=== PATIENT | male | born 1975 | race African-American/Black ===

== ENCOUNTER 2016-09-12 11:01 | Inpatient (IN) | payer MEDICAID ==
[2016-09-12] MEDS ORDERED: PANTOPRAZOLE 40 MG VIAL IV ONE (11:30)
--- NOTE | 2016-09-12 11:32 | EDPRACDOC ---
- General Information Stated Complaint: UPPER GI PROBLEMS Time Seen by Provider: 09/12/16 11:10 Mode of Arrival: Ambulance Home Medications: Home Medications Fluoxetine HCl [Prozac] 40 mg PO DAILY 06/29/15 HydrALAZINE (Cardiovascular) [Apresoline] 50 mg PO QID 06/29/15 Metoprolol Tartrate [Lopressor] 50 tab TUBE BID 06/29/15 Amlodipine Besylate 10 mg PO DAILY 09/12/15 Sucralfate [Carafate] 1 gm PO QID 02/12/16 Docusate Sodium 100 mg PO BID 04/25/16 Quetiapine Fumarate [Seroquel] 200 mg PO QHS 06/02/16 Ferrous Sulfate [Feosol] 325 mg PO BID 06/13/16 Guaifenesin [Robitussin] 15 ml PO Q6H PRN 06/13/16 Omeprazole [Prilosec] 20 mg PO BID 06/13/16 Sennosides [Senna] 2 tab PO HS 06/13/16 CloNIDine (Antihypertensive) [Catapres] 0.2 tab PO BID 07/30/16 Acetaminophen [Tylenol] 650 mg PO Q6H PRN 09/12/16 Bethanechol Chloride [Urecholine] 25 mg PO DAILY 09/12/16 Ergocalciferol (Vitamin D2) [Vitamin D] 50,000 units PO QMONTH 09/12/16 Insulin Glargine [Lantus Pen] 8 units SQ QAM 09/12/16 Mag Hydrox/Al Hydrox/Simeth [Maalox Suspension] 30 ml PO Q3H PRN 09/12/16 Magnesium Oxide [Magnesium] 400 mg PO DAILY 09/12/16 Multivitamin [One Daily Essential] 1 tab PO DAILY 09/12/16 Ondansetron HCl [Zofran] 4 mg PO Q8H PRN 09/12/16 Oxycodone HCl [Roxicodone] 5 mg PO Q6H PRN 09/12/16 Polyethylene Glycol 3350 [Miralax] 17 gm PO BID 09/12/16 Potassium Chloride 10 meq PO DAILY 09/12/16 Tamsulosin HCl [Flomax] 0.4 mg PO QAM 09/12/16 Temazepam [Restoril] 15 mg PO QHS PRN 09/12/16 Allergies/Adverse Reactions: Allergies Allergy/AdvReac Type Severity Reaction Status Date / Time Latex, Natural Rubber Allergy Intermediate Rash-Locali Verified 08/15/16 10:29 zed atorvastatin calcium Allergy See Verified 08/15/16 10:29 [From Lipitor] Comments - History of Present Illness Onset: YEST HPI: [facility] FROM [facility]. COFFEE GROUND EMESIS SINCE LAST NIGHT. LIMITED HISTORY DUE TO APHASIA. PT FOLLOWS SOME COMMANDS. ED Past Medical History - Patient Medical History Neurological History: Reports: Cerebrovascular Accident Cardiac History: Reports: Hypertension Respiratory History: Denies: Pneumonia, Pulmonary Embolism (but has history of DVT per medical records) GI/ History: Reports: Renal Disease (CKD stage 3), Gastroesophageal Reflux ( and esophageal stricture. EGD 01/2016 Dr. Vicente, no ulcers.), Ulcer (in past. No ulcer on EGD 01/2016, Dr. Vicente) Musculoskeletal History: Reports: Arthritis Psychological History: Reports: Depression, Schizophrenia. Denies: Substance Use Disorder Systemic History: Reports: Diabetes (Type 2) - Family Medical History Reports: Hypertension (father), Diabetes (father), Cancer (mother (colon)), Stroke (father). Denies: Cardiac Disorders - Social Medical History Smoking Status: Former smoker Social History: Denies: Substance Use Disorder - Physical Exam Constitutional: No apparent distress Oriented to: Unable to Test Last recorded Vital Signs: Last Vital Signs Temp 98.6 F 09/12/16 11:10 Pulse 105 09/12/16 11:10 Resp 20 09/12/16 11:10 BP 197/111 H 09/12/16 11:10 Pulse Ox 100 09/12/16 11:10 Oxygen Pulse Oxygen Saturation 100 O2 Device Oxygen Flow Rate Fraction of Inspired Oxygen ( FIO2) - HEENT Head: Normal Eye Exam: Normal Oropharynx: Normal Nose: No Symptoms Reported Neck: Normal - Respiratory/Cardiovascular Respiratory: Normal - CTA Cardiovascular: Normal - GI Tenderness: Non tender - Musculoskeletal Back: Normal Extremities: Other (CONTRACTURES B/L LEGS, LEFT ARM.) - Integumentary Skin: Normal - Neurologic Memory Impaired: Unable to Test Motor Function: Unable to Test Cerebellar: Unable to Test - Results 09/12/16 12:10 09/12/16 12:10 - EKG EKG #1 EKG Time: 11:24 -: Yes EKG interpreted by me Rate: bpm: 102 [place]: Normal Rhythm: ST Block: None Hypertrophy: None ST: Normal Comments: NORMAL EKG - Departure Yes I personally saw and evaluated the patient. Disposition: Admit IP To This Hospital Condition: Stable Final Diagnosis: Nausea and vomiting, Dehydration, Libertad-Reddy tear, Upper GI bleed Decision to Admit Time: 14:14 Decision to admit date: 09/12/16 Decision to admit: from ED - Physician Consulted Hospitalist Time Called: 14:14 Provider Called: Ruth Allison [employer] Returned Call: 14:14
--- NOTE | 2016-09-12 11:58 | DIRPT ---
CLINICAL DATA: Coffee-ground emesis beginning yesterday. EXAM: PORTABLE CHEST - 1 VIEW COMPARISON: None. FINDINGS: The heart size is normal. Lung volumes are low. No focal airspace disease is present. IMPRESSION: 1. No acute cardiopulmonary disease. Electronically Signed By: Anthony Gonzales M.D. On: 09/12/2016 11:55
[2016-09-12 12:46] LABS: MPV 7.3 fL (7.4-10.4)
[2016-09-12 13:01] LABS: BLOOD UREA NITROGEN 25 MG/DL (9-20); CALC CORRECTED 9.8 MG/DL (8.4-10.2); CALCIUM 8.6 MG/DL (8.4-10.2); CALCULATED OSMOLALITY 284 MOs/Kg (270-290); CHLORIDE 109 mEq/L (98-107); GLUCOSE 218 MG/DL (70-99); SODIUM LEVEL 142 mEq/L (137-146); TOTAL PROTEIN 6.8 G/DL (6.3-8.2)
[2016-09-12 13:06] LABS: TOTAL CELL COUNT 100
[2016-09-12 13:07] LABS: SEG NEUTROPHIL 83 % (45-76)
[2016-09-12] MEDS ORDERED: NS 1,000 ML IV ONE (14:13)
[2016-09-12] MEDS ORDERED: LIDOCAINE 1% 30 ML VIAL (PRESERVATIVE FREE) ONE (14:31)
[2016-09-12 15:04] LABS: LEUKOCYTES/URINE 1+ (NEGATIVE); NITRITE/URINE NEG (NEGATIVE); URINE OCCULT BLOOD 3+ (NEG/TRACE)
[2016-09-12 15:10] LABS: AMORPHOUS 2+; RBC/URINE 30-40 (0-2); WBC/URINE 40-50 (0-2)
[2016-09-12] MEDS ORDERED: TEMAZEPAM 15 MG CAP PO PRN (15:29)
[2016-09-12] MEDS ORDERED: Aluminum;Magnesium;Simethicone 30 ML UDC PO PRN ×2 (15:29→15:32)
[2016-09-12] MEDS ORDERED: GUAIFENESIN 200 MG/10 ML UDC PO PRN (15:29)
[2016-09-12] MEDS ORDERED: Non-Formulary Medication ITEM (Ondansetron Hcl [Zofran] 4 MG) PO PRN (15:29)
[2016-09-12] MEDS ORDERED: ACETAMINOPHEN 650 MG SUPP PR PRN (15:32)
[2016-09-12] MEDS ORDERED: SODIUM CHLORIDE 0.9% 3 ML FLUSH FLUSH PRN (15:32)
[2016-09-12] MEDS ORDERED: ACETAMINOPHEN 325 MG/TAB TABLET PO PRN (15:32)
[2016-09-12] MEDS ORDERED: MAGNESIUM HYDROXIDE 30 ML BOTTLE PO PRN (15:32)
[2016-09-12] MEDS ORDERED: ONDANSETRON HCL 4 MG/2 ML VIAL IV PRN (15:32)
[2016-09-12] MEDS ORDERED: PROMETHAZINE 25 MG/ML VIAL IV PRN (15:32)
--- NOTE | 2016-09-12 15:42 | HISTPHYS ---
- Chief Complaint C/O COFFEE GROUND EMESIS SINCE LAST NIGHT. PT FROM [facility] - History of Present Illness [facility] COFFEE GROUND EMESIS SINCE LAST NIGHT. LIMITED HISTORY DUE TO APHASIA. PT FOLLOWS SOME COMMANDS. From review of records at [facility] it appears that patient eats a calorie controlled no added salt heart diet. Apparently developed some coffee-ground emesis last night. In the emergency department NG tube was placed and he had some yellow emesis but it was gastroccult positive. The patient is aphasic after a stroke and he has severe hypertension. His white blood cell count is also elevated but there is no sign of any infection. Given his elevated white count, markedly out of control blood pressure, likely viral gastroenteritis and difficult to discern history patient will be admitted into the hospital for further evaluation and management of malignant hypertension, leukocytosis, and nausea vomiting. - Medical History Cardiac History: Reports: Hypertension Respiratory History: Denies: Pneumonia, Pulmonary Embolism (but has history of DVT per medical records) GI/ History: Reports: Renal Disease (CKD stage 3), Gastroesophageal Reflux ( and esophageal stricture. EGD 01/2016 Dr. Vicente, no ulcers.), Ulcer (in past. No ulcer on EGD 01/2016, Dr. Vicente) Musculoskeletal History: Reports: Arthritis Systemic History: Reports: Diabetes (Type 2) Neurological History: Reports: Cerebrovascular Accident Psychological History: Reports: Depression, Schizophrenia. Denies: Substance Use Disorder - Medictions/Allergies Allergies Latex, Natural Rubber Allergy (Intermediate, Verified 08/15/16 10:29) Rash-Localized atorvastatin calcium [From Lipitor] Allergy (Verified 08/15/16 10:29) See Comments "LEG PAIN" Current Medication List: Reviewed Home Medications Fluoxetine HCl [Prozac] 40 mg PO DAILY 06/29/15 HydrALAZINE (Cardiovascular) [Apresoline] 50 mg PO QID 06/29/15 Metoprolol Tartrate [Lopressor] 50 tab TUBE BID 06/29/15 Amlodipine Besylate 10 mg PO DAILY 09/12/15 Sucralfate [Carafate] 1 gm PO QID 02/12/16 Docusate Sodium 100 mg PO BID 04/25/16 Quetiapine Fumarate [Seroquel] 200 mg PO QHS 06/02/16 Ferrous Sulfate [Feosol] 325 mg PO BID 06/13/16 Guaifenesin [Robitussin] 15 ml PO Q6H PRN 06/13/16 Omeprazole [Prilosec] 20 mg PO BID 06/13/16 Sennosides [Senna] 2 tab PO HS 06/13/16 CloNIDine (Antihypertensive) [Catapres] 0.2 tab PO BID 07/30/16 Acetaminophen [Tylenol] 650 mg PO Q6H PRN 09/12/16 Bethanechol Chloride [Urecholine] 25 mg PO DAILY 09/12/16 Ergocalciferol (Vitamin D2) [Vitamin D] 50,000 units PO QMONTH 09/12/16 Insulin Glargine [Lantus Pen] 8 units SQ QAM 09/12/16 Mag Hydrox/Al Hydrox/Simeth [Maalox Suspension] 30 ml PO Q3H PRN 09/12/16 Magnesium Oxide [Magnesium] 400 mg PO DAILY 09/12/16 Multivitamin [One Daily Essential] 1 tab PO DAILY 09/12/16 Ondansetron HCl [Zofran] 4 mg PO Q8H PRN 09/12/16 Oxycodone HCl [Roxicodone] 5 mg PO Q6H PRN 09/12/16 Polyethylene Glycol 3350 [Miralax] 17 gm PO BID 09/12/16 Potassium Chloride 10 meq PO DAILY 09/12/16 Tamsulosin HCl [Flomax] 0.4 mg PO QAM 09/12/16 Temazepam [Restoril] 15 mg PO QHS PRN 09/12/16 - Family History Reports: Hypertension (father), Diabetes (father), Cancer (mother (colon)), Stroke (father). Denies: Cardiac Disorders - Social History Travel Outside of [place] in the Last 3 Months?: No Lives: in [facility] Care[facility] Smoking Status: Former smoker Social History: Denies: Alcohol Use, Substance Use Disorder - Review of Systems Yes Review of systems cannot be obtained due to the patient's medical condition - Physical Exam Vital Signs: Initial Vitals Temperature 98.6 F 09/12/16 11:10 Pulse Rate 105 09/12/16 11:10 Respiratory Rate 20 09/12/16 11:10 Blood Pressure 197/111 H 09/12/16 11:10 Pulse Oxygen Saturation 100 09/12/16 11:10 Constitutional: No apparent distress, Alert (Awake, Fully oriented. Normal and appropriate affect.Well appearing. Well nourished.), Well nourished, Well appearing, Other (Cooperative) Oriented to: Unable to Test - HEENT Head: Normal (normocephalic, atraumatic.), Other (No cervical lymphadenopathy. No supraclavicular lymphadenopathy. Neck: No palpable mass, supple , trachea midline.) Eye: Normal Oropharynx: Normal (Pharynx: Moist without exudate,Gums-no swelling, No oropharyngeal lesions or erythema, Mucous membranes are dry.) Nose: No Symptoms Reported (septum midline, Nares patent, without discharge or bleeding.) Respiratory: Normal - CTA (Clear to auscultation bilaterally. No wheezing, rales , rhonchi. Chest wall movements are symmetric. No use of accessory muscles to breathe.) Cardiovascular: Tachycardia - GI Auscultation: Normal (normal active sounds) Palpation: Normal (Soft,non distended,nontender. No hepatosplenomegaly.), Other (PEG tube in place) Tenderness: Non tender (No rebound or guarding) Cleveland's Sign: Negative - Garg catheter in place - Musculoskeletal Back: Normal (Non-Tender) Extremities: Normal (Normal tone, DP pulses 2+ bilaterally, No cyanosis or edema bilaterally, FROM bilaterally.) - Integumentary Skin: Normal (Clean, dry, and intact. No rashes. No lesions.) Lymphatics: Normal (No cervical lymphadenopathy. No supraclavicular lymphadenopathy.) - Neurologic Memory Impaired: Unable to Test Motor Function: Unable to Test Cranial Nerve: Unable to Test - Focused CV Perfusion Exam Vital Signs: Last Vital Signs Temp 98.6 F 09/12/16 11:10 Pulse 109 09/12/16 14:34 Resp 18 09/12/16 14:34 BP 193/115 H 09/12/16 14:34 Pulse Ox 98 09/12/16 14:34 - Lab Results Laboratory Results - last 24 hr 09/12/16 09/12/16 09/12/16 12:10 12:10 14:36 WBC 23.7 H RBC 4.26 L Hgb 11.4 L Hct 34.5 L MCV 81 MCH 26.8 L MCHC 33.1 RDW 15.7 H Plt Count 335 MPV 7.3 L Neut % (Auto) Cancelled Lymph % (Auto) Cancelled Placer % (Auto) Cancelled Eos % (Auto) Cancelled Baso % (Auto) Cancelled Absolute Neuts (auto) Cancelled Absolute Lymphs (auto) Cancelled Seg Neuts % (Manual) 83 H Band Neutrophils % 5 Lymphocytes % (Manual) 9 L Monocytes % (Manual) 3 Absolute Neutrophils 20.86 H Absolute Lymphocytes 2.13 Vacuolated Neuts 1+ Platelet Estimate Norm RBC Morphology 1+ polychrom Sodium 142 Potassium 4.6 Chloride 109 H Carbon Dioxide 21 L Anion Gap 17 H BUN 25 H Creatinine 3.00 H Estimated GFR (MDRD) 28 L Glucose 218 H Calculated Osmolality 284 Calcium 8.6 Corrected Calcium 9.8 Total Bilirubin 0.4 AST 31 ALT 32 Alkaline Phosphatase 147 H Troponin I 0.02 Total Protein 6.8 Albumin 2.8 L Urine Color Yellow Urine Clarity Cldy Urine pH 6.0 Ur Specific Harrell 1.025 Urine Protein 2+ H Urine Glucose (UA) 3+ Urine Ketones 1+ H Urine Occult Blood 3+ H Urine Nitrite Neg Urine Bilirubin Neg Urine Urobilinogen 0.2 Ur Leukocyte Esterase 1+ H Urine RBC 30-40 H Urine WBC 40-50 H Ur Epithelial Cells 1+ Amorphous Sediment 2+ Urine Bacteria 3+ H - Diagnostic Findings PORTABLE CHEST - 1 VIEW COMPARISON: None. FINDINGS: The heart size is normal. Lung volumes are low. No focal airspace disease is present. IMPRESSION: 1. No acute cardiopulmonary disease. Electronically Signed By: Anthony Gonzales M.D. On: 09/12/2016 11:55 - Assessment (1) Viral gastroenteritis A08.4 - VIRAL INTESTINAL INFECTION, UNSPECIFIED Suspected Present on Admission: Yes Patient with no obvious signs or symptoms of acute infection. Will admit him into the hospital and panculture urine and blood. White blood cell count is concerning but it appears that this may be a viral gastroenteritis causing nausea and vomiting. 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 Likely this may be the cause of the bleeding noted at the facility. Monitor H&H. Dr. Arma to see patient if necessary. (4) Nausea and vomiting R11.2 - NAUSEA WITH VOMITING, UNSPECIFIED Acute Present on Admission: Yes Likely due to viral gastroenteritis (5) Type 2 diabetes mellitus with diabetic polyneuropathy E11.42 - TYPE 2 DIABETES MELLITUS WITH DIABETIC POLYNEUROPATHY Acute Qualifiers: Diabetes mellitus termite control representative insulin use: unspecified care home insulin use status Qualified Code(s): E11.42 - Type 2 diabetes mellitus with diabetic polyneuropathy Fingerstick blood glucoses a.c. and HS with sliding scale insulin coverage. Continue home medications. Check hemoglobin A1c and urinary microalbumin. - Plan Admit. Monitor closely. Hydrate. Case Care Discussed with: Consultants, Nursing Staff Total Time: 70 minutes Critical Care: No Couseling Time (>50% in counseling/coordination): No
[2016-09-12] MEDS ORDERED: ONDANSETRON HCL 4 MG ODT TAB PO PRN (15:56)
[2016-09-12] MEDS ORDERED: GLARGINE INSULIN (LANTUS) 100 UNITS/ML PEN SQ SCH (16:00)
[2016-09-12] MEDS: AMLODIPINE 10 MG TAB PO SCH (16:08)
--- NOTE | 2016-09-12 16:22 | DIRPT ---
CLINICAL DATA: 40-year-old male currently in the emergency department with a urinary tract infection and inability to gain IV access. He will require outpatient antibiotic therapy. EXAM: CENTRAL VENOUS CATHETER FLUOROSCOPY TIME: 6 seconds TECHNIQUE: The right arm was prepped with chlorhexidine, draped in the usual sterile fashion using maximum barrier technique (cap and mask, sterile gown, sterile gloves, large sterile sheet, hand hygiene and cutaneous antiseptic). Local anesthesia was attained by infiltration with 1% lidocaine. Ultrasound demonstrated patency of the right brachial vein, and this was documented with an image. Under real-time ultrasound guidance, this vein was accessed with a 21 gauge micropuncture needle and image documentation was performed. The needle was exchanged over a guidewire for a peel-away sheath through which a 33 cm 5 Urdu single lumen power injectable PICC was advanced, and positioned with its tip at the lower SVC/right atrial junction. Fluoroscopy during the procedure and fluoro spot radiograph confirms appropriate catheter position. The catheter was flushed, secured to the skin with Prolene sutures, and covered with a sterile dressing. COMPLICATIONS: None. The patient tolerated the procedure well. IMPRESSION: Successful placement of a right arm single-lumen power PICC PICC with sonographic and fluoroscopic guidance. The catheter is ready for use. Signed, Dane Hernandez MD [facility] Electronically Signed By: Dane Hernandez M.D. On: 09/12/2016 16:19
[2016-09-12] MEDS ORDERED: Vaccine Screening Complete SCH (17:00)
[2016-09-12] MEDS: SODIUM CHLORIDE 0.9% 3 ML FLUSH FLUSH SCH (17:08)
[2016-09-12] MEDS: NS 1,000 ML IV SCH (18:11)
[2016-09-12] MEDS: PANTOPRAZOLE 40 MG TAB PO SCH (18:33)
[2016-09-12] MEDS: FERROUS SULFATE 324 MG TAB PO SCH (18:35)
[2016-09-12] MEDS: SUCRALFATE 1 GM TAB PO SCH ×2 (18:35→21:05)
[2016-09-12 19:14] LABS: PARTIAL THROMB. TIME 21.2 SEC (22-35); PT-INR 1.1
--- NOTE | 2016-09-12 19:46 | DIRPT ---
CLINICAL DATA: Clinical concern for CVA. EXAM: CT HEAD WITHOUT CONTRAST TECHNIQUE: Contiguous axial images were obtained from the base of the skull through the vertex without intravenous contrast. COMPARISON: None. FINDINGS: Brain: No evidence of acute infarction, hemorrhage, extra-axial collection, ventriculomegaly, or mass effect. Encephalomalacia in the right basal ganglia is likely due to prior lacunar infarct. Mild periventricular white matter microvascular disease is noted. Vascular: No hyperdense vessel. Vascular calcifications at the skullbase are seen. Skull: Negative for fracture or focal lesion. Sinuses/Orbits: Small fluid collection within the right maxillary sinus. The remainder of the visualized paranasal sinuses are normal. Other: None. IMPRESSION: No acute intracranial abnormality. Mild chronic microvascular disease. Remote right basal ganglia lacunar infarct. Electronically Signed By: James Cordero M.D. On: 09/12/2016 19:44
[2016-09-12] MEDS: hydrALAZINE 20 MG/ML VIAL IV PRN (19:59)
[2016-09-12] MEDS: ENOXAPARIN 40 MG/0.4 ML PFS SQ SCH (20:58)
[2016-09-12] MEDS ORDERED: Non-Formulary Medication ITEM (Omeprazole 20 MG) PO SCH (21:00)
[2016-09-12] MEDS ORDERED: QUETIAPINE FUMARATE 200 MG PO SCH (21:00)
[2016-09-12] MEDS ORDERED: Non-Formulary Medication ITEM (Ferrous Sulfate [Feosol] 325 MG) PO SCH (21:00)
[2016-09-12] MEDS: CloNIDine 0.2 MG TAB PO SCH (21:05)
[2016-09-12] MEDS: METOPROLOL TARTRATE 50 MG TAB PEG SCH (21:05)
[2016-09-12] MEDS: Docusate Sodium 100 MG CAP PO SCH (21:05)
[2016-09-12] MEDS: PEG-ELECTROLYTE 17 GM PACK PO SCH (21:05)
[2016-09-12] MEDS: SENNA CONCENTRATE TAB PO SCH (21:05)
[2016-09-12] MEDS: QUETIAPINE FUMARATE 100 MG TAB PO SCH (21:05)
[2016-09-13] MEDS: NS 1,000 ML IV SCH ×3 (01:53→14:32)
[2016-09-13] MEDS: hydrALAZINE 20 MG/ML VIAL IV PRN (01:55)
[2016-09-13] MEDS ORDERED: NS 50 ML IV ONE (02:17)
[2016-09-13] MEDS ORDERED: LORAZEPAM 2 MG/ML VIAL IV ONE ×4 (02:59→05:32)
[2016-09-13] MEDS ORDERED: LORAZEPAM 2 MG/ML VIAL ONE (03:22)
--- NOTE | 2016-09-13 03:59 | GENMEDPROG ---
Chief Complaint: CRITICAL CARE NOTE 09/13/16309 S: NURSE CALLED. PATIENT HAS HAD A CHANGE. HE IS NOT LOOKING AT NURSE AND EYES ROLLING IN BACK OF HEAD. PUPILS REMAIN MINIMALLY REACTIVE. Subjective Note: CRITICAL CARE NOTE 09/13/16309 S: NURSE CALLED. PATIENT HAS HAD A CHANGE. HE IS NOT LOOKING AT NURSE AND EYES ROLLING IN BACK OF HEAD. PUPILS REMAIN MINIMALLY REACTIVE. Has had some tremor of his legs and arms. ROS: Unable to obtain due to patient's medical condition. Notes Reviewed: Yes Events from last night noted and discussed with Clinical Staff Current Medication List: Reviewed DVT Prophylaxis: Yes - Physical Examination Vital Signs and I&O: Last Vital Signs Temp 98.4 F 09/13/16 03:34 Pulse 142 H 09/13/16 03:34 Resp 16 09/13/16 03:34 BP 196/112 H 09/13/16 03:34 Pulse Ox 98 09/13/16 03:34 Oxygen Pulse Oxygen Saturation 98 O2 Device Room Air Oxygen Flow Rate Fraction of Inspired Oxygen ( FIO2) Intake & Output 09/10/16 09/11/16 09/12/16 09/13/16 05:59 05:59 05:59 05:59 Intake Total 1945 Output Total 575 Balance 1370 Patient's weight 74.077 kg Lymphatics: Normal (No cervical lymphadenopathy. No supraclavicular lymphadenopathy.) Respiratory: Normal - CTA (Clear to auscultation bilaterally. No wheezing, rales , rhonchi. Chest wall movements are symmetric. No use of accessory muscles to breathe.) GENERAL: Ill-appearing, well nourished, in acute distress. HEENT: Normocephalic, atraumatic; pupils equal and round, rolling superiorly. Minimally reactive pupils. Nares patent, without discharge or bleeding. No oropharyngeal lesions or erythema. Mucous membranes are dry. NECK: is supple, no masses, trachea midline. RESPIRATORY: Clear to auscultation bilaterally. Chest wall movements are symmetric. No use of accessory muscles to breathe. No wheezing, rales, rhonchi. CARDIOVASCULAR: Normal S1, S2. No rubs, or gallops. PMI non-displaced. Carotids : no carotid bruits. Tachycardia. DP pulses 2+ bilaterally. GI: soft, nontender, non-distended, normal active bowel sounds. No hepatosplenomegaly. INTEGUMENT: Clean, dry. Several pressure ulcers and healing lesions. MUSCULOSKELETAL: Moving all extremities. No cyanosis. Slight clubbing. Edema: none bilaterally. NEUROLOGICAL: Cranial nerves 2-12 grossly intact, as best can be determined in this patient who is not responsive. Fine tremor on legs and arms/upper body. Reflexes: 1+ bilaterally. Babinski: toes downgoing bilaterally. Further neurologic exam could not be performed due to the patient's medical condition. PSYCHIATRIC: Not oriented. Unresponsive to voice and painful stimuli. LYMPHATIC: No cervical lymphadenopathy. No supraclavicular lymphadenopathy. Lab/DI/Studies Reviewed: Laboratory Tests 09/12/16 09/12/16 09/12/16 12:10 12:10 12:10 WBC 23.7 H RBC 4.26 L Hgb 11.4 L Hct 34.5 L MCV 81 MCH 26.8 L MCHC 33.1 RDW 15.7 H Plt Count 335 MPV 7.3 L Neut % (Auto) Cancelled Lymph % (Auto) Cancelled [place] % (Auto) Cancelled Eos % (Auto) Cancelled Baso % (Auto) Cancelled Absolute Neuts (auto) Cancelled Absolute Lymphs (auto) Cancelled Seg Neuts % (Manual) 83 H Band Neutrophils % 5 Lymphocytes % (Manual) 9 L Monocytes % (Manual) 3 Absolute Neutrophils 20.86 H Absolute Lymphocytes 2.13 Vacuolated Neuts 1+ Platelet Estimate Norm RBC Morphology 1+ polychrom PT INR APTT Sodium 142 Potassium 4.6 Chloride 109 H Carbon Dioxide 21 L Anion Gap 17 H BUN 25 H Creatinine 3.00 H Estimated GFR (MDRD) 28 L Glucose 218 H POC Capillary Glucose Hemoglobin A1c 8.7 H Calculated Osmolality 284 Calcium 8.6 Corrected Calcium 9.8 Total Bilirubin 0.4 AST 31 ALT 32 Alkaline Phosphatase 147 H Troponin I 0.02 Total Protein 6.8 Albumin 2.8 L TSH Urine Color Urine Clarity Urine pH Ur Specific [place] Urine Protein Urine Glucose (UA) Urine Ketones Urine Occult Blood Urine Nitrite Urine Bilirubin Urine Urobilinogen Ur Leukocyte Esterase Urine RBC Urine WBC Ur Epithelial Cells Amorphous Sediment Urine Bacteria Blood Type Antibody Screen 09/12/16 09/12/16 09/12/16 12:10 14:36 18:40 WBC RBC Hgb Hct MCV MCH MCHC RDW Plt Count MPV Neut % (Auto) Lymph % (Auto) [place] % (Auto) Eos % (Auto) Baso % (Auto) Absolute Neuts (auto) Absolute Lymphs (auto) Seg Neuts % (Manual) Band Neutrophils % Lymphocytes % (Manual) Monocytes % (Manual) Absolute Neutrophils Absolute Lymphocytes Vacuolated Neuts Platelet Estimate RBC Morphology PT INR APTT Sodium Potassium Chloride Carbon Dioxide Anion Gap BUN Creatinine Estimated GFR (MDRD) Glucose POC Capillary Glucose Hemoglobin A1c Calculated Osmolality Calcium Corrected Calcium Total Bilirubin AST ALT Alkaline Phosphatase Troponin I Total Protein Albumin TSH 1.74 Urine Color Yellow Urine Clarity Cldy Urine pH 6.0 Ur Specific [place] 1.025 Urine Protein 2+ H Urine Glucose (UA) 3+ Urine Ketones 1+ H Urine Occult Blood 3+ H Urine Nitrite Neg Urine Bilirubin Neg Urine Urobilinogen 0.2 Ur Leukocyte Esterase 1+ H Urine RBC 30-40 H Urine WBC 40-50 H Ur Epithelial Cells 1+ Amorphous Sediment 2+ Urine Bacteria 3+ H Blood Type B POSITIVE Antibody Screen Negative 09/12/16 09/12/16 09/12/16 18:40 18:40 22:35 WBC RBC Hgb Hct MCV MCH MCHC RDW Plt Count MPV Neut % (Auto) Lymph % (Auto) [place] % (Auto) Eos % (Auto) Baso % (Auto) Absolute Neuts (auto) Absolute Lymphs (auto) Seg Neuts % (Manual) Band Neutrophils % Lymphocytes % (Manual) Monocytes % (Manual) Absolute Neutrophils Absolute Lymphocytes Vacuolated Neuts Platelet Estimate RBC Morphology PT 11.2 INR 1.1 APTT 21.2 L Sodium Potassium Chloride Carbon Dioxide Anion Gap BUN Creatinine Estimated GFR (MDRD) Glucose POC Capillary Glucose Hemoglobin A1c Calculated Osmolality Calcium Corrected Calcium Total Bilirubin AST ALT Alkaline Phosphatase Troponin I 0.01 0.02 Total Protein Albumin TSH Urine Color Urine Clarity Urine pH Ur Specific [place] Urine Protein Urine Glucose (UA) Urine Ketones Urine Occult Blood Urine Nitrite Urine Bilirubin Urine Urobilinogen Ur Leukocyte Esterase Urine RBC Urine WBC Ur Epithelial Cells Amorphous Sediment Urine Bacteria Blood Type Antibody Screen 09/13/16 03:38 WBC RBC Hgb Hct MCV MCH MCHC RDW Plt Count MPV Neut % (Auto) Lymph % (Auto) [place] % (Auto) Eos % (Auto) Baso % (Auto) Absolute Neuts (auto) Absolute Lymphs (auto) Seg Neuts % (Manual) Band Neutrophils % Lymphocytes % (Manual) Monocytes % (Manual) Absolute Neutrophils Absolute Lymphocytes Vacuolated Neuts Platelet Estimate RBC Morphology PT INR APTT Sodium Potassium Chloride Carbon Dioxide Anion Gap BUN Creatinine Estimated GFR (MDRD) Glucose POC Capillary Glucose 114 H Hemoglobin A1c Calculated Osmolality Calcium Corrected Calcium Total Bilirubin AST ALT Alkaline Phosphatase Troponin I Total Protein Albumin TSH Urine Color Urine Clarity Urine pH Ur Specific [place] Urine Protein Urine Glucose (UA) Urine Ketones Urine Occult Blood Urine Nitrite Urine Bilirubin Urine Urobilinogen Ur Leukocyte Esterase Urine RBC Urine WBC Ur Epithelial Cells Amorphous Sediment Urine Bacteria Blood Type Antibody Screen Chest x-ray, viewed personally: EXAM: PORTABLE CHEST - 1 VIEW COMPARISON: None. FINDINGS: The heart size is normal. Lung volumes are low. No focal airspace disease is present. IMPRESSION: 1. No acute cardiopulmonary disease. Head CT: EXAM: CT HEAD WITHOUT CONTRAST TECHNIQUE: Contiguous axial images were obtained from the base of the skull through the vertex without intravenous contrast. COMPARISON: None. FINDINGS: Brain: No evidence of acute infarction, hemorrhage, extra-axial collection, ventriculomegaly, or mass effect. Encephalomalacia in the right basal ganglia is likely due to prior lacunar infarct. Mild periventricular white matter microvascular disease is noted. Vascular: No hyperdense vessel. Vascular calcifications at the skullbase are seen. Skull: Negative for fracture or focal lesion. Sinuses/Orbits: Small fluid collection within the right maxillary sinus. The remainder of the visualized paranasal sinuses are normal. Other: None. IMPRESSION: No acute intracranial abnormality. Mild chronic microvascular disease. Remote right basal ganglia lacunar infarct. EK09/13/16: 141 bpm. Sinus tachycardia. Reviewed EKG personally. - Assessment (1) Seizure Acute R56.9 - UNSPECIFIED CONVULSIONS Comment/Plan: Etiology unclear, could be due to CVA or other etiology. Plan: Gave Ativan x 1. Keppra 1,000 mg IV x 1. Gave additional Ativan x 1. Moved patient to PCU. Still with activity, so gave additional Ativan. Load of IV Fosphenytoin 1,000 mg IV x 1. Still with activity so moved to the ICU. Stat labs, including CBC, BMP, Magnesium, INR, ESR. Recultured blood, urine. Ordered sputum culture, stool culture, and c diff. Suspect the seizures are due to CVA, but could be due to infection or other cause. Trial of empiric IV acyclovir. UPDATE: Seizure resolved after several doses of Ativan, IV Keppra, and IV Fosphenytoin load. Plan: IV Keppra bid. IV dilantin. Check dilantin levels. Consult neurologist. (2) CVA (cerebral vascular accident) Acute I63.9 - CEREBRAL INFARCTION, UNSPECIFIED Qualifiers: CVA mechanism: C Precerebral and cerebral artery: P Laterality of affected vessel: L Comment/Plan: Suspected. Stat Head CT last night was negative, but could be having another stroke. Is not speaking (which is not his baseline). Ordered CVA protocol yesterday. Patient was receiving neuro checks. Plan: CVA order set. MRI head in the AM. NPO until speech therapy evaluation. Physical therapy and occupational therapy evaluations. Neuro checks q 4 hours. Telemetry. Daily aspirin; may want to consider other medication. Statin. Check lipid levels. NOTE: TPA NOT GIVEN. NO TPA DUE TO: onset of symptoms not known and diagnosis is uncertain. (3) Aphasia Acute R47.01 - APHASIA Comment/Plan: Is not speaking (which is not his baseline). Per report, he normally speaks well and can converse without difficulty. Plan: Continue CVA workup. MRI in the AM. NPO until speech therapy evaluation. (4) Infectious gastroenteritis Acute A09 - INFECTIOUS GASTROENTERITIS AND COLITIS, UNSPECIFIED Comment/Plan : Patient with no obvious signs or symptoms of acute infection. Will admit him into the hospital and panculture urine and blood. White blood cell count is concerning but it appears that this may be a viral gastroenteritis causing nausea and vomiting. Updated Plan: Will order stool cutlures and c diff. Will now treat with IV Levaquin in case enteritis is bacterial. (5) Hypertensive urgency Acute I16.0 - HYPERTENSIVE URGENCY Comment/Plan: Blood pressure has been very elevated. Goal blood pressure 180 for initial. Plan: Continue medications. Add additional medications as needed to reach SBP goal of 180. (6) Sinus tachycardia Acute R00.0 - TACHYCARDIA, UNSPECIFIED Comment/Plan: Plan: EKG. Telemetry. (7) Leukocytosis Acute D72.829 - ELEVATED WHITE BLOOD CELL COUNT, UNSPECIFIED Qualifiers: Leukocytosis type: L Comment/Plan: On admission. Cultures were ordered on admission. Plan: Recheck CBC. Recheck cultures. Lactic acid. Labs. Trial of empiric antibiotics, although no definite source of infection known. IV Levaquin. (8) Viral gastroenteritis Acute A08.4 - VIRAL INTESTINAL INFECTION, UNSPECIFIED Comment/Plan: Patient with no obvious signs or symptoms of acute infection. Will admit him into the hospital and panculture urine and blood. White blood cell count is concerning but it appears that this may be a viral gastroenteritis causing nausea and vomiting. Plan: Will order stool cutlures and c diff. Will now treat with IV Levaquin in case enteritis is bacterial. - Plan In summary, this patient is acutely and critically ill. The patient requires treatment of vital organ failure and measures to prevent further life- threatening deterioration of condition. I have spent 75 min in the critical care of this patient. Case Care Discussed with: Patient, Nursing Staff Total Time: 75 min. Critical Care: Yes Code: 291
[2016-09-13] MEDS ORDERED: FOSPHENYTOIN IV ONE (04:00)
[2016-09-13] MEDS ORDERED: NS IV ONE ×2 (04:00→13:00)
[2016-09-13 04:21] LABS: MPV 7.6 fL (7.4-10.4)
[2016-09-13] MEDS ORDERED: GLUCAGON 1 MG VIAL SQ PRN (04:27)
[2016-09-13] MEDS ORDERED: DEXTROSE 25 GM/50 ML PFS IV PRN (04:27)
[2016-09-13] MEDS ORDERED: GLUCOSE (ORAL GEL) 15 GM TUBE PO PRN (04:27)
[2016-09-13 04:29] LABS: CPK TOTAL WITH POSSIBLE MB 209 IU/L (55-170)
[2016-09-13 04:31] LABS: BLOOD UREA NITROGEN 27 MG/DL (9-20); CALCIUM 8.7 MG/DL (8.4-10.2); CALCULATED OSMOLALITY 286 MOs/Kg (270-290); CHLORIDE 113 mEq/L (98-107); GLUCOSE 135 MG/DL (70-99); LDL (calc.) 96.6 MG/DL (<100); SODIUM LEVEL 145 mEq/L (137-146); VLDL (calc.) 18.4 MG/DL (5-40)
[2016-09-13 04:45] LABS: CPKMB 1.5 ng/mL (0-4.5)
[2016-09-13 04:51] LABS: PT-INR 1.1
[2016-09-13] MEDS ORDERED: Levofloxacin 750 mg/150 ml D5W 750 MG/150 ML RTU IV ONE (05:00)
[2016-09-13] MEDS: LABETALOL 20 MG/4 ML SYRINGE IV PRN (05:38)
[2016-09-13] MEDS: REGULAR INSULIN 100 UNITS/ML - 3 ML VIAL SQ SCH ×4 (06:28→23:57)
[2016-09-13] MEDS: SODIUM CHLORIDE 0.9% 3 ML FLUSH FLUSH SCH ×2 (06:30→16:12)
[2016-09-13] MEDS: ACYCLOVIR IV SCH ×3 (06:30→22:03)
[2016-09-13] MEDS: NS IV SCH ×4 (06:30→22:03)
[2016-09-13] MEDS: PANTOPRAZOLE 40 MG TAB PO SCH ×2 (06:38→16:12)
[2016-09-13 07:24] LABS: SEG NEUTROPHIL 91 % (45-76)
[2016-09-13] MEDS: TAMSULOSIN HCL 0.4 MG CAP PO SCH (08:24)
[2016-09-13] MEDS: SUCRALFATE 1 GM TAB PO SCH ×4 (08:24→20:36)
[2016-09-13] MEDS: POTASSIUM CHLORIDE 10 MEQ TABLET PO SCH (08:24)
[2016-09-13] MEDS: CloNIDine 0.2 MG TAB PO SCH ×2 (08:24→20:36)
[2016-09-13] MEDS: Docusate Sodium 100 MG CAP PO SCH ×2 (08:24→20:36)
[2016-09-13] MEDS: BETHANECHOL 25 MG TAB PO SCH (08:25)
[2016-09-13] MEDS: FLUOXETINE 20 MG CAP PO SCH (08:25)
[2016-09-13] MEDS: MAGNESIUM OXIDE 400 MG TAB PO SCH (08:25)
[2016-09-13] MEDS: PEG-ELECTROLYTE 17 GM PACK PO SCH ×2 (08:25→20:37)
[2016-09-13] MEDS: METOPROLOL TARTRATE 50 MG TAB PEG SCH ×2 (08:25→20:36)
[2016-09-13] MEDS: GLARGINE INSULIN (LANTUS) 100 UNITS/ML PEN SQ SCH (08:25)
[2016-09-13] MEDS: AMLODIPINE 10 MG TAB PO SCH (08:25)
[2016-09-13] MEDS ORDERED: GLARGINE INSULIN (LANTUS) 100 UNITS/ML PEN SQ SCH (09:00)
[2016-09-13] MEDS ORDERED: Non-Formulary Medication ITEM (Potassium Chloride [Potassium Chloride] 10 MEQ) PO SCH (09:00)
[2016-09-13] MEDS ORDERED: MULTIVITAMIN PO SCH (09:00)
[2016-09-13] MEDS ORDERED: FLUOXETINE HCL 40 MG PO SCH (09:00)
[2016-09-13] MEDS ORDERED: LORAZEPAM 2 MG/ML VIAL IV PRN (10:20)
[2016-09-13] MEDS: FERROUS SULFATE 324 MG TAB PO SCH ×2 (11:00→16:12)
[2016-09-13] MEDS: VITAMINS, MULTIPLE CAP PO SCH (11:00)
[2016-09-13] MEDS: PHENYTOIN SODIUM 100 MG/2 ML VIAL IV SCH ×3 (11:11→20:31)
--- NOTE | 2016-09-13 12:23 | CAPUEKG ---
[place], [place] Test Date: 2016-09-13 Pat Name: FARHAN RAMIREZ Department: Room: 443 Gender: Male Remote Sensing Technologist: RACHEL FLORESB: Requested By: Order Number: Reading MD: Fab Carrasquillo MD Measurements Intervals [place] Rate: 141 P: 64 MT: 114 QRS: 101 QRSD: 70 T: 47 QT: 306 QTc: 468 Interpretive Statements Sinus tachycardia Rightward axis Pulmonary disease pattern Abnormal ECG Electronically Signed On 09-13-16 12:22:50 EST by Fab Carrasquillo MD <[email or web address]> [id number]
[2016-09-13] MEDS ORDERED: VALPROATE SODIUM IV ONE (13:00)
--- NOTE | 2016-09-13 14:20 | GENMEDPROG ---
Chief Complaint: Seizures overnight. Minimally responsive at this time. Blood pressures are moderately elevated. Renal function slightly better. Notes Reviewed: Yes Events from last night noted and discussed with Clinical Staff Current Medication List: Reviewed Currently: Reports: Nausea and Vomiting. Denies: Cough, Wheezing, GARCIA, SOB, Abdominal Pain DVT Prophylaxis: Yes - Physical Examination Vital Signs and I&O: Last Vital Signs Temp 97.0 F L 09/13/16 11:00 Pulse 116 09/13/16 12:00 Resp 18 09/13/16 12:00 BP 157/98 09/13/16 12:00 Pulse Ox 100 09/13/16 12:00 Oxygen Pulse Oxygen Saturation 100 O2 Device Room Air Oxygen Flow Rate Fraction of Inspired Oxygen ( FIO2) Intake & Output 09/10/16 09/11/16 09/12/16 09/13/16 23:59 23:59 23:59 23:59 Intake Total 1518 1835 Output Total 775 Balance 1518 1060 Patient's weight 74.077 kg General: No acute distress. negative: Alert, Oriented x3, Cooperative, Mild distress, Well appearing (Chronically ill) HEENT: Normal, PERRLA, Anicteric Sclera Neck: Non-tender, Full range of motion, Normal Trachea alignment, Normal inspection. negative: JVD Lymphatics: Normal (No cervical lymphadenopathy. No supraclavicular lymphadenopathy.) Respiratory: Normal - CTA (Clear to auscultation bilaterally. No wheezing, rales , rhonchi. Chest wall movements are symmetric. No use of accessory muscles to breathe.) Cardiovascular: Regular rate and rhythm, No Gallops,Rubs/Murmurs GI: Soft, Non tender, No hepatospenomegaly Extremities/Musculoskeletal: negative: Tenderness, Swelling, Edema Skin: Warm,Dry and Intact, No rashes, No breakdown Neurological: Normal tone. negative: Normal Steady Gait, Normal speech, Cranial nerves 3-12 NL Psych/Mental Status: Somnolent, Lethargic Lab/DI/Studies Reviewed: Laboratory Results - last 24 hr 09/12/16 09/12/16 09/12/16 12:10 12:10 14:36 WBC RBC Hgb Hct MCV MCH MCHC RDW Plt Count MPV Neut % (Auto) Lymph % (Auto) [place] % (Auto) Eos % (Auto) Baso % (Auto) Absolute Neuts (auto) Absolute Lymphs (auto) Seg Neuts % (Manual) Band Neutrophils % Lymphocytes % (Manual) Monocytes % (Manual) Absolute Neutrophils Absolute Lymphocytes Platelet Estimate RBC Morphology ESR PT INR APTT Sodium Potassium Chloride Carbon Dioxide Anion Gap BUN Creatinine Estimated GFR (MDRD) Glucose POC Capillary Glucose Hemoglobin A1c 8.7 H Calculated Osmolality Lactic Acid Calcium Magnesium Creatine Kinase CK-MB (CK-2) Troponin I Triglycerides Cholesterol LDL Cholesterol, Calc VLDL Cholesterol, Calc HDL Cholesterol Cholesterol/HDL Ratio TSH 1.74 Urine Color Yellow Urine Clarity Cldy Urine pH 6.0 Ur Specific [place] 1.025 Urine Protein 2+ H Urine Glucose (UA) 3+ Urine Ketones 1+ H Urine Occult Blood 3+ H Urine Nitrite Neg Urine Bilirubin Neg Urine Urobilinogen 0.2 Ur Leukocyte Esterase 1+ H Urine RBC 30-40 H Urine WBC 40-50 H Ur Epithelial Cells 1+ Amorphous Sediment 2+ Urine Bacteria 3+ H Phenytoin Blood Type Antibody Screen 09/12/16 09/12/16 09/12/16 18:40 18:40 18:40 WBC RBC Hgb Hct MCV MCH MCHC RDW Plt Count MPV Neut % (Auto) Lymph % (Auto) [place] % (Auto) Eos % (Auto) Baso % (Auto) Absolute Neuts (auto) Absolute Lymphs (auto) Seg Neuts % (Manual) Band Neutrophils % Lymphocytes % (Manual) Monocytes % (Manual) Absolute Neutrophils Absolute Lymphocytes Platelet Estimate RBC Morphology ESR PT 11.2 INR 1.1 APTT 21.2 L Sodium Potassium Chloride Carbon Dioxide Anion Gap BUN Creatinine Estimated GFR (MDRD) Glucose POC Capillary Glucose Hemoglobin A1c Calculated Osmolality Lactic Acid Calcium Magnesium Creatine Kinase CK-MB (CK-2) Troponin I 0.01 Triglycerides Cholesterol LDL Cholesterol, Calc VLDL Cholesterol, Calc HDL Cholesterol Cholesterol/HDL Ratio TSH Urine Color Urine Clarity Urine pH Ur Specific [place] Urine Protein Urine Glucose (UA) Urine Ketones Urine Occult Blood Urine Nitrite Urine Bilirubin Urine Urobilinogen Ur Leukocyte Esterase Urine RBC Urine WBC Ur Epithelial Cells Amorphous Sediment Urine Bacteria Phenytoin Blood Type B POSITIVE Antibody Screen Negative 09/12/16 09/13/16 09/13/16 22:35 03:38 04:10 WBC RBC Hgb Hct MCV MCH MCHC RDW Plt Count MPV Neut % (Auto) Lymph % (Auto) [place] % (Auto) Eos % (Auto) Baso % (Auto) Absolute Neuts (auto) Absolute Lymphs (auto) Seg Neuts % (Manual) Band Neutrophils % Lymphocytes % (Manual) Monocytes % (Manual) Absolute Neutrophils Absolute Lymphocytes Platelet Estimate RBC Morphology ESR PT INR APTT Sodium 145 Potassium 4.3 Chloride 113 H Carbon Dioxide 24 Anion Gap 12 BUN 27 H Creatinine 2.70 H Estimated GFR (MDRD) 32 L Glucose 135 H POC Capillary Glucose 114 H Hemoglobin A1c Calculated Osmolality 286 Lactic Acid Calcium 8.7 Magnesium Creatine Kinase CK-MB (CK-2) Troponin I 0.02 Triglycerides 92 Cholesterol 184 LDL Cholesterol, Calc 96.6 VLDL Cholesterol, Calc 18.4 HDL Cholesterol 69.0 Cholesterol/HDL Ratio 2.7 TSH Urine Color Urine Clarity Urine pH Ur Specific [place] Urine Protein Urine Glucose (UA) Urine Ketones Urine Occult Blood Urine Nitrite Urine Bilirubin Urine Urobilinogen Ur Leukocyte Esterase Urine RBC Urine WBC Ur Epithelial Cells Amorphous Sediment Urine Bacteria Phenytoin Blood Type Antibody Screen 09/13/16 09/13/16 09/13/16 04:10 04:10 04:10 WBC 29.2 H RBC 4.09 L Hgb 10.8 L Hct 33.2 L MCV 81 MCH 26.4 L MCHC 32.6 L RDW 15.7 H Plt Count 398 MPV 7.6 Neut % (Auto) Cancelled Lymph % (Auto) Cancelled [place] % (Auto) Cancelled Eos % (Auto) Cancelled Baso % (Auto) Cancelled Absolute Neuts (auto) Cancelled Absolute Lymphs (auto) Cancelled Seg Neuts % (Manual) 91 H Band Neutrophils % 0 Lymphocytes % (Manual) 4 L Monocytes % (Manual) 5 Absolute Neutrophils 26.57 H Absolute Lymphocytes 1.17 Platelet Estimate Norm RBC Morphology Reviewed this admiss ESR PT 11.4 H INR 1.1 APTT Sodium Potassium Chloride Carbon Dioxide Anion Gap BUN Creatinine Estimated GFR (MDRD) Glucose POC Capillary Glucose Hemoglobin A1c Calculated Osmolality Lactic Acid 1.4 Calcium Magnesium Creatine Kinase CK-MB (CK-2) Troponin I Triglycerides Cholesterol LDL Cholesterol, Calc VLDL Cholesterol, Calc HDL Cholesterol Cholesterol/HDL Ratio TSH Urine Color Urine Clarity Urine pH Ur Specific [place] Urine Protein Urine Glucose (UA) Urine Ketones Urine Occult Blood Urine Nitrite Urine Bilirubin Urine Urobilinogen Ur Leukocyte Esterase Urine RBC Urine WBC Ur Epithelial Cells Amorphous Sediment Urine Bacteria Phenytoin Blood Type Antibody Screen 09/13/16 09/13/16 09/13/16 04:10 04:10 04:10 WBC RBC Hgb Hct MCV MCH MCHC RDW Plt Count MPV Neut % (Auto) Lymph % (Auto) [place] % (Auto) Eos % (Auto) Baso % (Auto) Absolute Neuts (auto) Absolute Lymphs (auto) Seg Neuts % (Manual) Band Neutrophils % Lymphocytes % (Manual) Monocytes % (Manual) Absolute Neutrophils Absolute Lymphocytes Platelet Estimate RBC Morphology ESR 122 H PT INR APTT Sodium Potassium Chloride Carbon Dioxide Anion Gap BUN Creatinine Estimated GFR (MDRD) Glucose POC Capillary Glucose Hemoglobin A1c Calculated Osmolality Lactic Acid Calcium Magnesium 2.20 Creatine Kinase 209 H CK-MB (CK-2) 1.5 Troponin I 0.03 Triglycerides Cholesterol LDL Cholesterol, Calc VLDL Cholesterol, Calc HDL Cholesterol Cholesterol/HDL Ratio TSH Urine Color Urine Clarity Urine pH Ur Specific [place] Urine Protein Urine Glucose (UA) Urine Ketones Urine Occult Blood Urine Nitrite Urine Bilirubin Urine Urobilinogen Ur Leukocyte Esterase Urine RBC Urine WBC Ur Epithelial Cells Amorphous Sediment Urine Bacteria Phenytoin Blood Type Antibody Screen 09/13/16 09/13/16 09/13/16 06:04 06:05 07:55 WBC RBC Hgb Hct MCV MCH MCHC RDW Plt Count MPV Neut % (Auto) Lymph % (Auto) [place] % (Auto) Eos % (Auto) Baso % (Auto) Absolute Neuts (auto) Absolute Lymphs (auto) Seg Neuts % (Manual) Band Neutrophils % Lymphocytes % (Manual) Monocytes % (Manual) Absolute Neutrophils Absolute Lymphocytes Platelet Estimate RBC Morphology ESR PT INR APTT Sodium Potassium Chloride Carbon Dioxide Anion Gap BUN Creatinine Estimated GFR (MDRD) Glucose POC Capillary Glucose 184 H Hemoglobin A1c Calculated Osmolality Lactic Acid Calcium Magnesium Creatine Kinase 154 CK-MB (CK-2) Troponin I 0.02 Triglycerides Cholesterol LDL Cholesterol, Calc VLDL Cholesterol, Calc HDL Cholesterol Cholesterol/HDL Ratio TSH Urine Color Urine Clarity Urine pH Ur Specific [place] Urine Protein Urine Glucose (UA) Urine Ketones Urine Occult Blood Urine Nitrite Urine Bilirubin Urine Urobilinogen Ur Leukocyte Esterase Urine RBC Urine WBC Ur Epithelial Cells Amorphous Sediment Urine Bacteria Phenytoin 12.6 Blood Type Antibody Screen 09/13/16 09/13/16 09/13/16 10:00 11:05 11:30 WBC RBC Hgb Hct MCV MCH MCHC RDW Plt Count MPV Neut % (Auto) Lymph % (Auto) [place] % (Auto) Eos % (Auto) Baso % (Auto) Absolute Neuts (auto) Absolute Lymphs (auto) Seg Neuts % (Manual) Band Neutrophils % Lymphocytes % (Manual) Monocytes % (Manual) Absolute Neutrophils Absolute Lymphocytes Platelet Estimate RBC Morphology ESR PT INR APTT Sodium Potassium Chloride Carbon Dioxide Anion Gap BUN Creatinine Estimated GFR (MDRD) Glucose POC Capillary Glucose 110 H Hemoglobin A1c Calculated Osmolality Lactic Acid Calcium Magnesium Creatine Kinase 140 CK-MB (CK-2) Troponin I 0.02 Triglycerides Cholesterol LDL Cholesterol, Calc VLDL Cholesterol, Calc HDL Cholesterol Cholesterol/HDL Ratio TSH Urine Color Urine Clarity Urine pH Ur Specific [place] Urine Protein Urine Glucose (UA) Urine Ketones Urine Occult Blood Urine Nitrite Urine Bilirubin Urine Urobilinogen Ur Leukocyte Esterase Urine RBC Urine WBC Ur Epithelial Cells Amorphous Sediment Urine Bacteria Phenytoin 13.5 Blood Type Antibody Screen - Assessment (1) Seizure Acute R56.9 - UNSPECIFIED CONVULSIONS Comment/Plan: Likely due to old stroke. Has been loaded on IV Keppra and IV Dilantin. Dr. De Dios with Neurology to see in consultation. Head CT negative for acute abnormality. MRI has been ordered. P.r.n. IV Ativan (2) Infectious gastroenteritis Acute A09 - INFECTIOUS GASTROENTERITIS AND COLITIS, UNSPECIFIED Comment/Plan : IV fluids and supportive care. Appears to have stabilized. No stool cultures pending (3) Leukocytosis Acute D72.829 - ELEVATED WHITE BLOOD CELL COUNT, UNSPECIFIED Qualifiers: Leukocytosis type: unspecified Qualified Code(s): D72.829 - Elevated white blood cell count, unspecified Comment/Plan: Worse today but suspect due to seizures overnight. Continue current care. IV fluids and supportive care. Continue antibiotics. (4) Liebrtad-Reddy tear Acute K22.6 - GASTRO-ESOPHAGEAL LACERATION-HEMORRHAGE SYNDROME Comment/Plan : Monitor H&H, stable overnight. (5) Nausea and vomiting Acute R11.2 - NAUSEA WITH VOMITING, UNSPECIFIED Comment/Plan: Likely due to viral gastroenteritis (6) Acute on chronic renal failure Acute N17.9 - ACUTE KIDNEY FAILURE, UNSPECIFIED; N18.9 - CHRONIC KIDNEY DISEASE, UNSPECIFIED Comment/Plan: Slightly better today. Continue IV fluids and supportive care. (7) Schizophrenia Chronic F20.9 - SCHIZOPHRENIA, UNSPECIFIED Qualifiers: Schizophrenia type: unspecified Qualified Code(s): F20.9 - Schizophrenia, unspecified Comment/Plan: Continue home medications. Difficult to assess cognition at this time due to repeated seizures. Case Care Discussed with: Nursing Staff, Resource Management
[2016-09-13] MEDS: ENOXAPARIN 40 MG/0.4 ML PFS SQ SCH (17:53)
--- NOTE | 2016-09-13 19:49 | DIRPT ---
CLINICAL DATA: 40-year-old male unresponsive, vomiting blood with dehydration seizure. Subsequent encounter. EXAM: MRI HEAD WITHOUT CONTRAST TECHNIQUE: Multiplanar, multiecho pulse sequences of the brain and surrounding structures were obtained without intravenous contrast. COMPARISON: 09/12/[address] 06/16/2015 brain MR. FINDINGS: Exam is significantly motion degraded and limited. Small acute nonhemorrhagic infarct posterior limb right internal capsule. Remote right globus pallidus infarct. Scattered white matter changes most notable periventricular region but also involving the anterior right temporal lobe and central rm of unchanged from prior exam and may reflect small vessel disease changes. With involvement of the rm and patient's age, CADASIL (cerebral autosomal dominant arteriopathy with subcortical infarcts and leukoencephalopathy) is a consideration. Global atrophy without hydrocephalus. No intracranial mass lesion noted on this unenhanced exam. Major intracranial vascular structures are patent. Small caliber right vertebral artery unchanged. Post lens replacement with mild exophthalmos. Mucosal thickening right maxillary sinus. Cervical medullary junction, pituitary region pineal region grossly within normal limits. IMPRESSION: Exam is significantly motion degraded. Small acute nonhemorrhagic infarct posterior limb right internal capsule. Remote right globus pallidus infarct. Scattered white matter changes most notable periventricular region but also involving the anterior right temporal lobe and central rm of unchanged from prior exam and may reflect small vessel disease changes. With involvement of the rm and patient's age, CADASIL (cerebral autosomal dominant arteriopathy with subcortical infarcts and leukoencephalopathy) is a consideration. Other causes of white matter changes such as that related to vasculitis or inflammatory process not excluded. Appearance not typical for demyelinating process. Global atrophy without hydrocephalus. No intracranial mass lesion noted on this unenhanced motion degraded exam. Major intracranial vascular structures are patent. Small caliber right vertebral artery unchanged. Mucosal thickening right maxillary sinus. Electronically Signed By: Aureliano Downs M.D. On: 09/13/2016 19:46
[2016-09-13] MEDS: SENNA CONCENTRATE TAB PO SCH (20:37)
[2016-09-13] MEDS: PRAVASTATIN 40 MG TABLET PO SCH (20:37)
[2016-09-13] MEDS: QUETIAPINE FUMARATE 100 MG TAB PO SCH (20:37)
[2016-09-13] MEDS: VALPROATE SODIUM IV SCH (20:37)
[2016-09-13] MEDS: METOPROLOL 5 MG/5 ML SDV IV SCH (23:00)
[2016-09-14] MEDS ORDERED: PANTOPRAZOLE 40 MG VIAL IV SCH
[2016-09-14] MEDS: PANTOPRAZOLE 40 MG VIAL IV SCH ×2 (00:56→11:57)
[2016-09-14] MEDS: NS 1,000 ML IV SCH ×2 (02:30→13:28)
[2016-09-14] MEDS: PHENYTOIN SODIUM 100 MG/2 ML VIAL IV SCH ×3 (03:55→20:23)
[2016-09-14] MEDS: REGULAR INSULIN 100 UNITS/ML - 3 ML VIAL SQ SCH ×3 (05:08→16:55)
[2016-09-14] MEDS: Levofloxacin 250 mg/50 ml D5W 250 MG/50 ML RTU IV SCH (05:09)
[2016-09-14] MEDS: SODIUM CHLORIDE 0.9% 3 ML FLUSH FLUSH SCH ×2 (05:09→16:34)
[2016-09-14] MEDS: METOPROLOL 5 MG/5 ML SDV IV SCH ×3 (05:13→16:33)
[2016-09-14 05:36] LABS: MPV 7.7 fL (7.4-10.4)
[2016-09-14 05:51] LABS: BLOOD UREA NITROGEN 29 MG/DL (9-20); CALCIUM 7.9 MG/DL (8.4-10.2); CALCULATED OSMOLALITY 288 MOs/Kg (270-290); CHLORIDE 117 mEq/L (98-107); GLUCOSE 90 MG/DL (70-99); PHENYTOIN/DILANTIN LEVEL 8.9 MCG/ML (10-20); SODIUM LEVEL 147 mEq/L (137-146)
[2016-09-14 05:53] LABS: VALPROIC ACID LEVEL 39.1 MCG/ML (50-100)
[2016-09-14] MEDS: NS IV SCH ×5 (06:15→22:53)
[2016-09-14] MEDS: ACYCLOVIR IV SCH ×3 (06:15→22:53)
[2016-09-14 06:19] LABS: SEG NEUTROPHIL 75 % (45-76)
[2016-09-14] MEDS: hydrALAZINE 20 MG/ML VIAL IV PRN ×2 (06:19→13:30)
[2016-09-14] MEDS: VALPROATE SODIUM IV SCH ×2 (07:55→20:23)
[2016-09-14] MEDS: SUCRALFATE 1 GM TAB PO SCH ×4 (09:25→20:23)
[2016-09-14] MEDS: Docusate Sodium 100 MG CAP PO SCH ×2 (09:25→22:42)
[2016-09-14] MEDS: TAMSULOSIN HCL 0.4 MG CAP PO SCH (09:25)
[2016-09-14] MEDS: CloNIDine 0.2 MG TAB PO SCH ×2 (09:25→20:23)
[2016-09-14] MEDS: POTASSIUM CHLORIDE 10 MEQ TABLET PO SCH (09:26)
[2016-09-14] MEDS: AMLODIPINE 10 MG TAB PO SCH (09:26)
[2016-09-14] MEDS: BETHANECHOL 25 MG TAB PO SCH (09:26)
[2016-09-14] MEDS: FLUOXETINE 20 MG CAP PO SCH (09:26)
[2016-09-14] MEDS: PEG-ELECTROLYTE 17 GM PACK PO SCH ×2 (09:26→20:22)
[2016-09-14] MEDS: MAGNESIUM OXIDE 400 MG TAB PO SCH (09:26)
[2016-09-14] MEDS: GLARGINE INSULIN (LANTUS) 100 UNITS/ML PEN SQ SCH (09:26)
--- NOTE | 2016-09-14 10:24 | GENMEDPROG ---
Currently: Reports: Nausea and Vomiting. Denies: Cough, Wheezing, GARCIA, SOB, Abdominal Pain DVT Prophylaxis: Yes - Physical Examination Vital Signs and I&O: Last Vital Signs Temp 97.6 F 09/14/16 07:00 Pulse 104 09/14/16 10:00 Resp 16 09/14/16 09:00 BP 152/91 09/14/16 10:00 Pulse Ox 100 09/14/16 10:00 Oxygen Pulse Oxygen Saturation 100 O2 Device Room Air Oxygen Flow Rate Fraction of Inspired Oxygen ( FIO2) Intake & Output 09/11/16 09/12/16 09/13/16 09/14/16 23:59 23:59 23:59 23:59 Intake Total 1518 3036 1347 Output Total 1125 500 Balance 1518 1911 847 Patient's weight 74.077 kg 73.624 kg General: No acute distress. negative: Alert, Oriented x3, Cooperative, Mild distress, Well appearing (Chronically ill) HEENT: Normal, PERRLA, Anicteric Sclera Neck: Non-tender, Full range of motion, Normal Trachea alignment, Normal inspection. negative: JVD Lymphatics: Normal (No cervical lymphadenopathy. No supraclavicular lymphadenopathy.) Respiratory: Normal - CTA (Clear to auscultation bilaterally. No wheezing, rales , rhonchi. Chest wall movements are symmetric. No use of accessory muscles to breathe.) Cardiovascular: Regular rate and rhythm, No Gallops,Rubs/Murmurs GI: Soft, Non tender, No hepatospenomegaly Extremities/Musculoskeletal: negative: Tenderness, Swelling, Edema Skin: Warm,Dry and Intact, No rashes, No breakdown Neurological: Normal tone. negative: Normal Steady Gait, Normal speech, Cranial nerves 3-12 NL Psych/Mental Status: Somnolent, Lethargic Lab/DI/Studies Reviewed: Laboratory Tests 09/13/16 09/14/16 09/14/16 11:30 04:36 04:36 WBC 21.4 H Hgb 9.1 L D Hct 27.9 L Plt Count 325 Seg Neuts % (Manual) 75 Band Neutrophils % 3 Lymphocytes % (Manual) 19 Sodium 147 H Potassium 4.4 Chloride 117 H Carbon Dioxide 20 L Anion Gap 14 BUN 29 H Creatinine 2.50 H Estimated GFR (MDRD) 34 L Glucose 90 POC Capillary Glucose Calculated Osmolality 288 Calcium 7.9 L Phenytoin 13.5 8.9 L Valproic Acid 39.1 L 09/14/16 04:38 WBC Hgb Hct Plt Count Seg Neuts % (Manual) Band Neutrophils % Lymphocytes % (Manual) Sodium Potassium Chloride Carbon Dioxide Anion Gap BUN Creatinine Estimated GFR (MDRD) Glucose POC Capillary Glucose 93 Calculated Osmolality Calcium Phenytoin Valproic Acid MRI Head: IMPRESSION: Exam is significantly motion degraded. Small acute nonhemorrhagic infarct posterior limb right internal capsule. Remote right globus pallidus infarct. Scattered white matter changes most notable periventricular region but also involving the anterior right temporal lobe and central rm of unchanged from prior exam and may reflect small vessel disease changes. With involvement of the rm and patient's age, CADASIL (cerebral autosomal dominant arteriopathy with subcortical infarcts and leukoencephalopathy) is a consideration. Other causes of white matter changes such as that related to vasculitis or inflammatory process not excluded. Appearance not typical for demyelinating process. Global atrophy without hydrocephalus. No intracranial mass lesion noted on this unenhanced motion degraded exam. Major intracranial vascular structures are patent. Small caliber right vertebral artery unchanged. Mucosal thickening right maxillary sinus. Electronically Signed By: Aureliano Downs M.D. On: 09/13/2016 19:46 - Assessment (1) CVA (cerebral vascular accident) Acute I63.9 - CEREBRAL INFARCTION, UNSPECIFIED Qualifiers: CVA mechanism: thrombosis Precerebral and cerebral artery: middle cerebral artery Laterality of affected vessel: right Qualified Code(s): I63.311 - Cerebral infarction due to thrombosis of right middle cerebral artery Comment/Plan: MRI confirms that patient did have another stroke. Location is in posterior limb of right internal capsule. Is not speaking (which is not his baseline). Ordered CVA protocol yesterday. Patient is receiving neuro checks. Plan:Continue CVA order set. NPO until speech therapy clears him for PO intake. Physical therapy and occupational therapy evaluations. Neuro checks q 4 hours. Telemetry. Daily aspirin; may want to consider other medication. May use NG tube to administer meds if still NPO. continue Statin. Check lipid levels. NOTE: TPA NOT GIVEN. NO TPA DUE TO: onset of symptoms not known and diagnosis is uncertain. (2) Seizure Acute R56.9 - UNSPECIFIED CONVULSIONS Comment/Plan: Likely due to old stroke. Has been loaded on IV Keppra and IV Dilantin. Dr. De Dios with Neurology to see in consultation. Head CT negative for acute abnormality. MRI has been ordered. P.r.n. IV Ativan (3) Hypertensive urgency Acute I16.0 - HYPERTENSIVE URGENCY Comment/Plan: Blood pressure has been very elevated. Goal blood pressure 180 for initial 48 hours. Continue medications. Add additional medications as needed to reach SBP goal of 180. (4) Sinus tachycardia Acute R00.0 - TACHYCARDIA, UNSPECIFIED Comment/Plan: Plan: EKG. Telemetry. (5) Type 2 diabetes mellitus with diabetic polyneuropathy Acute E11.42 - TYPE 2 DIABETES MELLITUS WITH DIABETIC POLYNEUROPATHY Qualifiers: Diabetes mellitus superintendent terminal insulin use: unspecified superintendent terminal insulin use status Qualified Code(s): E11.42 - Type 2 diabetes mellitus with diabetic polyneuropathy Comment/Plan: Fingerstick blood glucoses a.c. and HS with sliding scale insulin coverage. Continue home medications. Check hemoglobin A1c and urinary microalbumin. (6) Nausea and vomiting Acute R11.2 - NAUSEA WITH VOMITING, UNSPECIFIED Comment/Plan: Likely due to viral gastroenteritis (7) Aphasia Chronic R47.01 - APHASIA Comment/Plan: Is not speaking (which is not his baseline). Per report, he normally speaks well and can converse without difficulty. Plan: Continue CVA workup. MRI in the AM. NPO until speech therapy evaluation. (8) Anemia associated with acute blood loss Acute D62 - ACUTE POSTHEMORRHAGIC ANEMIA (9) Upper GI bleed Acute K92.2 - GASTROINTESTINAL HEMORRHAGE, UNSPECIFIED Comment/Plan: HEMATEMESIS-resolved now (10) History of CVA with residual deficit Chronic I69.30 - UNSPECIFIED SEQUELAE OF CEREBRAL INFARCTION Comment/Plan: Noted. Supportive care (11) Pressure ulcer of both heels Chronic L89.619 - PRESSURE ULCER OF RIGHT HEEL, UNSPECIFIED STAGE; L89.629 - PRESSURE ULCER OF LEFT HEEL, UNSPECIFIED STAGE
[2016-09-14] MEDS: FERROUS SULFATE 324 MG TAB PO SCH ×2 (11:51→16:55)
[2016-09-14] MEDS: VITAMINS, MULTIPLE CAP PO SCH (11:51)
[2016-09-14] MEDS: ENOXAPARIN 40 MG/0.4 ML PFS SQ SCH (16:55)
[2016-09-14] MEDS: PRAVASTATIN 40 MG TABLET PO SCH (20:22)
[2016-09-14] MEDS: SENNA CONCENTRATE TAB PO SCH (20:22)
[2016-09-14] MEDS: QUETIAPINE FUMARATE 100 MG TAB PO SCH (20:23)
[2016-09-14] MEDS: METOPROLOL TARTRATE 50 MG TAB PEG SCH (20:23)
[2016-09-15] MEDS: REGULAR INSULIN 100 UNITS/ML - 3 ML VIAL SQ SCH ×5 (00:11→23:38)
[2016-09-15] MEDS: PANTOPRAZOLE 40 MG VIAL IV SCH ×3 (00:12→23:36)
[2016-09-15] MEDS: METOPROLOL 5 MG/5 ML SDV IV SCH (00:13)
[2016-09-15] MEDS: NS 1,000 ML IV SCH ×2 (00:14→12:25)
[2016-09-15] MEDS: PHENYTOIN SODIUM 100 MG/2 ML VIAL IV SCH (04:04)
[2016-09-15] MEDS: Levofloxacin 250 mg/50 ml D5W 250 MG/50 ML RTU IV SCH (05:15)
[2016-09-15] MEDS: ACYCLOVIR IV SCH (05:50)
[2016-09-15] MEDS: NS IV SCH ×3 (05:50→21:04)
[2016-09-15] MEDS: SODIUM CHLORIDE 0.9% 3 ML FLUSH FLUSH SCH ×2 (06:29→17:47)
[2016-09-15] MEDS: VALPROATE SODIUM IV SCH ×2 (08:26→21:04)
[2016-09-15] MEDS: Docusate Sodium 100 MG CAP PO SCH ×2 (08:27→21:08)
[2016-09-15] MEDS: CloNIDine 0.2 MG TAB PO SCH ×2 (08:27→21:07)
[2016-09-15] MEDS: SUCRALFATE 1 GM TAB PO SCH (08:27)
[2016-09-15] MEDS: TAMSULOSIN HCL 0.4 MG CAP PO SCH (08:27)
[2016-09-15] MEDS: PEG-ELECTROLYTE 17 GM PACK PO SCH ×2 (08:28→21:08)
[2016-09-15] MEDS: MAGNESIUM OXIDE 400 MG TAB PO SCH (08:28)
[2016-09-15] MEDS: AMLODIPINE 10 MG TAB PO SCH (08:28)
[2016-09-15] MEDS: METOPROLOL TARTRATE 50 MG TAB PEG SCH ×2 (08:28→21:07)
[2016-09-15] MEDS: POTASSIUM CHLORIDE 10 MEQ TABLET PO SCH (08:28)
[2016-09-15] MEDS: GLARGINE INSULIN (LANTUS) 100 UNITS/ML PEN SQ SCH (08:28)
[2016-09-15] MEDS: BETHANECHOL 25 MG TAB PO SCH (08:29)
[2016-09-15] MEDS: FLUOXETINE 20 MG CAP PO SCH (08:29)
--- NOTE | 2016-09-15 09:12 | GENMEDPROG ---
Chief Complaint: SEPSIS, UTI, GASTROENTERITIS, SEIZURES, PRIOR STROKE, ACUTE CVA, HTN, Currently: Reports: Nausea and Vomiting. Denies: Cough, Wheezing, GARCIA, SOB, Abdominal Pain DVT Prophylaxis: Yes - Physical Examination Vital Signs and I&O: Last Vital Signs Temp 98.9 F 09/15/16 07:00 Pulse 88 09/15/16 08:28 Resp 18 09/15/16 07:00 BP 157/87 09/15/16 08:28 Pulse Ox 100 09/15/16 08:00 Oxygen Pulse Oxygen Saturation 100 O2 Device Room Air Oxygen Flow Rate Fraction of Inspired Oxygen ( FIO2) Intake & Output 09/12/16 09/13/16 09/14/16 09/15/16 23:59 23:59 23:59 23:59 Intake Total 1518 3036 3083 1179 Output Total 1125 925 125 Balance 1518 1911 2158 1054 Patient's weight 74.077 kg 73.624 kg 73.624 kg General: No acute distress. negative: Alert, Oriented x3, Cooperative, Mild distress, Well appearing (Chronically ill) HEENT: Normal, PERRLA, Anicteric Sclera Neck: Non-tender, Full range of motion, Normal Trachea alignment, Normal inspection. negative: JVD Lymphatics: Normal (No cervical lymphadenopathy. No supraclavicular lymphadenopathy.) Respiratory: Normal - CTA (Clear to auscultation bilaterally. No wheezing, rales , rhonchi. Chest wall movements are symmetric. No use of accessory muscles to breathe.) Cardiovascular: Regular rate and rhythm, No Gallops,Rubs/Murmurs GI: Soft, Non tender, No hepatospenomegaly Extremities/Musculoskeletal: negative: Tenderness, Swelling, Edema Skin: Warm,Dry and Intact, No rashes, No breakdown Neurological: Normal tone. negative: Normal Steady Gait, Normal speech, Cranial nerves 3-12 NL Psych/Mental Status: Somnolent, Lethargic - Assessment (1) CVA (cerebral vascular accident) Acute I63.9 - CEREBRAL INFARCTION, UNSPECIFIED Qualifiers: CVA mechanism: thrombosis Precerebral and cerebral artery: middle cerebral artery Laterality of affected vessel: right Qualified Code(s): I63.311 - Cerebral infarction due to thrombosis of right middle cerebral artery Comment/Plan: MRI confirms that patient did have another stroke. Location is in posterior limb of right internal capsule. Is not speaking (which is not his baseline). Ordered CVA protocol yesterday. Patient is receiving neuro checks. Plan:Continue CVA order set. NPO until speech therapy clears him for PO intake. Physical therapy and occupational therapy evaluations. Neuro checks q 4 hours. Telemetry. Daily aspirin; may want to consider other medication. May use NG tube to administer meds if still NPO. continue Statin. Check lipid levels. NOTE: TPA NOT GIVEN. NO TPA DUE TO: onset of symptoms not known and diagnosis is uncertain. (2) Seizure Acute R56.9 - UNSPECIFIED CONVULSIONS Comment/Plan: Likely due to stroke. Continue on IV Keppra and IV Dilantin. Dr. De Dios with Neurology has seen the patient in consultation. Head CT negative for acute abnormality. MRI shows acute CVA in R internal capsule. P.r.n. IV Ativan (3) Hypertensive urgency Acute I16.0 - HYPERTENSIVE URGENCY Comment/Plan: Blood pressure is better controlled. Added additional medications as needed to maintain SBP goal of <180. (4) UTI (urinary tract infection) due to Enterococcus Acute N39.0 - URINARY TRACT INFECTION, SITE NOT SPECIFIED; B95.2 - ENTEROCOCCUS THE CAUSE OF DISEASES CLASSIFIED ELSEWHERE Comment/Plan: URINE CULTURE + Enterococcus, also for pseudomonas. Have started patient on vanc and Levaquin. Monitor renal function closely. (5) Type 2 diabetes mellitus with diabetic polyneuropathy Acute E11.42 - TYPE 2 DIABETES MELLITUS WITH DIABETIC POLYNEUROPATHY Qualifiers: Diabetes mellitus shelter insulin use: unspecified shelter insulin use status Qualified Code(s): E11.42 - Type 2 diabetes mellitus with diabetic polyneuropathy Comment/Plan: Fingerstick blood glucoses a.c. and HS with sliding scale insulin coverage. Continue home medications. Check hemoglobin A1c and urinary microalbumin. (6) Aphasia Chronic R47.01 - APHASIA Comment/Plan: Is not speaking (which is not his baseline). Per report, he normally speaks well and can converse without difficulty. Plan: Continue CVA workup. MRI in the AM. NPO until speech therapy evaluation. (7) Sinus tachycardia Acute R00.0 - TACHYCARDIA, UNSPECIFIED Comment/Plan: Plan: EKG. Telemetry. (8) Nausea and vomiting Resolved R11.2 - NAUSEA WITH VOMITING, UNSPECIFIED Comment/Plan: Likely due to acute infection (UTI) (9) Anemia associated with acute blood loss Acute D62 - ACUTE POSTHEMORRHAGIC ANEMIA (10) Pressure ulcer of both heels Chronic L89.619 - PRESSURE ULCER OF RIGHT HEEL, UNSPECIFIED STAGE; L89.629 - PRESSURE ULCER OF LEFT HEEL, UNSPECIFIED STAGE (11) Upper GI bleed Acute K92.2 - GASTROINTESTINAL HEMORRHAGE, UNSPECIFIED Comment/Plan: HEMATEMESIS-resolved now (12) UTI (urinary tract infection) due to urinary indwelling Garg catheter Acute T83.511A - I/I REACT D/T INDWELLING URETHRAL CATHETER, INIT; N39.0 - URINARY TRACT INFECTION, SITE NOT SPECIFIED Qualifiers: Indwelling urinary catheter type: indwelling urethral catheter Encounter type: initial encounter Qualified Code(s): T83.511A - Infection and inflammatory reaction due to indwelling urethral catheter, initial encounter; N39.0 - Urinary tract infection, site not specified Comment/Plan: Remove Garg cath, scan bladder q 6 hr; do I&O cath if residual > 200 mL. (13) History of CVA with residual deficit Chronic I69.30 - UNSPECIFIED SEQUELAE OF CEREBRAL INFARCTION Comment/Plan: Noted. Supportive care
[2016-09-15] MEDS ORDERED: Vancomycin HCl 0 MG in D5W 500 ML IV SCH (10:00)
[2016-09-15] MEDS: IMIPENEM CILASTATIN 250 MG in D5W 100 ML IV SCH ×2 (11:44→18:33)
[2016-09-15] MEDS: [UNRECOGNIZED DRUG - OTHER] PO SCH ×3 (11:50→21:06)
[2016-09-15] MEDS: FERROUS SULFATE 324 MG TAB PO SCH ×2 (11:50→17:45)
[2016-09-15] MEDS: VITAMINS, MULTIPLE CAP PO SCH (11:50)
[2016-09-15] MEDS: Linezolid 600 mg/300 ml Premix 600 MG/300 ML RTU IV SCH ×2 (12:23→22:19)
[2016-09-15] MEDS: ENOXAPARIN 40 MG/0.4 ML PFS SQ SCH (17:45)
--- NOTE | 2016-09-15 19:54 | PCM.NEUPN ---
- Physical Exam Vital Signs: Initial Vitals Temperature 98.6 F 09/12/16 11:10 Pulse Rate 105 09/12/16 11:10 Respiratory Rate 20 09/12/16 11:10 Blood Pressure 197/111 H 09/12/16 11:10 Pulse Oxygen Saturation 100 09/12/16 11:10 Selected Entries 09/15/16 19:00 Temperature 97.4 F L Pulse Rate 85 Respiratory 16 Rate Blood Pressure 150/94 Constitutional: No apparent distress, Somnolent - Mental Status Orientation: Person (Patient able to state his name) Speech: Other (slow and halting) Coginitive: Other (Patient opens eyes after repeated prompting and asks " Am I able to open my eyes") Affect: Appropriate Thought: Other (unable to test) Perception: Other (unable to test) - Sensory Sensory: Other (Withdraws to pain in BLE (left > right)) - Other Exam Other Exam Findings: Pupil size equal and reactive. - Lab Results Laboratory Tests 09/12/16 09/12/16 09/13/16 12:10 12:10 04:10 WBC Hgb Hct MCV Absolute Neutrophils Sodium BUN Creatinine Hemoglobin A1c 8.7 H Triglycerides 92 Cholesterol 184 LDL Cholesterol, Calc 96.6 VLDL Cholesterol, Calc 18.4 HDL Cholesterol 69.0 Cholesterol/HDL Ratio 2.7 TSH 1.74 Phenytoin Valproic Acid 09/14/16 09/14/16 04:36 04:36 WBC 21.4 H Hgb 9.1 L D Hct 27.9 L MCV 83 Absolute Neutrophils 16.69 H Sodium 147 H BUN 29 H Creatinine 2.50 H Hemoglobin A1c Triglycerides Cholesterol LDL Cholesterol, Calc VLDL Cholesterol, Calc HDL Cholesterol Cholesterol/HDL Ratio TSH Phenytoin 8.9 L Valproic Acid 39.1 L - Diagnostic Findings EXAM: MRI HEAD WITHOUT CONTRAST COMPARISON: 09/12/[address] 06/16/2015 brain MR. FINDINGS: Exam is significantly motion degraded and limited. Small acute nonhemorrhagic infarct posterior limb right internal capsule. Remote right globus pallidus infarct. Scattered white matter changes most notable periventricular region but also involving the anterior right temporal lobe and central rm of unchanged from prior exam and may reflect small vessel disease changes. With involvement of the rm and patient's age, CADASIL (cerebral autosomal dominant arteriopathy with subcortical infarcts and leukoencephalopathy) is a consideration. Global atrophy without hydrocephalus. No intracranial mass lesion noted on this unenhanced exam. Major intracranial vascular structures are patent. Small caliber right vertebral artery unchanged. Post lens replacement with mild exophthalmos. Mucosal thickening right maxillary sinus. Cervical medullary junction, pituitary region pineal region grossly within normal limits. IMPRESSION: Exam is significantly motion degraded. Small acute nonhemorrhagic infarct posterior limb right internal capsule. Remote right globus pallidus infarct. Scattered white matter changes most notable periventricular region but also involving the anterior right temporal lobe and central rm of unchanged from prior exam and may reflect small vessel disease changes. With involvement of the rm and patient's age, CADASIL (cerebral autosomal dominant arteriopathy with subcortical infarcts and leukoencephalopathy) is a consideration. Other causes of white matter changes such as that related to vasculitis or inflammatory process not excluded. Appearance not typical for demyelinating process. Global atrophy without hydrocephalus. No intracranial mass lesion noted on this unenhanced motion degraded exam. Major intracranial vascular structures are patent. Small caliber right vertebral artery unchanged. Mucosal thickening right maxillary sinus. - Assessment/Plan (1) CVA (cerebral vascular accident) I63.9 - CEREBRAL INFARCTION, UNSPECIFIED Acute Present on Admission: No thrombosis middle cerebral artery right I63.311 - Cerebral infarction due to thrombosis of right middle cerebral artery Comment: Notes reviewed. MRI shows a small acute nonhemorrhagic infarct in the posterior limb right internal capsule. Patient currently not on ASA. Unless contraindicated recommend daily ASA OR until able to take p.o. safely. ASA was not listed on medications from ID. ST/PT/OT. (2) Seizure R56.9 - UNSPECIFIED CONVULSIONS Acute Present on Admission: No Comment: EEG done today. Results pending. No witnessed seizure activity since 09/13/16. Continue Depacon and Keppra at current doses. Case Care Discussed with: Nursing Staff, Other (Dr. Ashford)
[2016-09-15] MEDS: QUETIAPINE FUMARATE 100 MG TAB PO SCH (21:08)
[2016-09-15] MEDS: PRAVASTATIN 40 MG TABLET PO SCH (21:08)
[2016-09-15] MEDS: SENNA CONCENTRATE TAB PO SCH (21:09)
[2016-09-16] MEDS: IMIPENEM CILASTATIN 250 MG in D5W 100 ML IV SCH ×4 (00:43→18:45)
[2016-09-16] MEDS: hydrALAZINE 20 MG/ML VIAL IV PRN ×2 (02:06→17:30)
[2016-09-16] MEDS: NS 1,000 ML IV SCH ×2 (02:14→16:21)
[2016-09-16 03:57] LABS: AUTOMATED BASOPHIL 0.8 % (0-2); AUTOMATED EOSINOPHIL 0.1 % (0-5); AUTOMATED LYMPH 24.4 % (17-44); AUTOMATED MONOCYTE 7.6 % (3-10); AUTOMATED NEUTROPHIL 67.1 % (45-76); MPV 7.1 fL (7.4-10.4)
[2016-09-16 04:07] LABS: BLOOD UREA NITROGEN 25 MG/DL (9-20); CALCIUM 7.4 MG/DL (8.4-10.2); CALCULATED OSMOLALITY 284 MOs/Kg (270-290); CHLORIDE 118 mEq/L (98-107); GLUCOSE 145 MG/DL (70-99); SODIUM LEVEL 144 mEq/L (137-146)
[2016-09-16] MEDS: REGULAR INSULIN 100 UNITS/ML - 3 ML VIAL SQ SCH ×3 (05:34→17:35)
[2016-09-16] MEDS: SODIUM CHLORIDE 0.9% 3 ML FLUSH FLUSH SCH ×2 (05:34→17:53)
[2016-09-16] MEDS: CloNIDine 0.2 MG TAB PO SCH ×2 (07:56→20:59)
[2016-09-16] MEDS: METOPROLOL TARTRATE 50 MG TAB PEG SCH ×2 (07:56→20:59)
[2016-09-16] MEDS: POTASSIUM CHLORIDE 10 MEQ TABLET PO SCH (07:56)
[2016-09-16] MEDS: MAGNESIUM OXIDE 400 MG TAB PO SCH (07:56)
[2016-09-16] MEDS: [UNRECOGNIZED DRUG - OTHER] PO SCH ×4 (07:56→20:59)
[2016-09-16] MEDS: BETHANECHOL 25 MG TAB PO SCH (07:56)
[2016-09-16] MEDS: NS IV SCH ×2 (07:57→20:59)
[2016-09-16] MEDS: AMLODIPINE 10 MG TAB PO SCH (07:57)
[2016-09-16] MEDS: VALPROATE SODIUM IV SCH ×2 (07:57→20:59)
[2016-09-16] MEDS: Docusate Sodium 100 MG CAP PO SCH ×2 (07:57→21:00)
[2016-09-16] MEDS: Linezolid 600 mg/300 ml Premix 600 MG/300 ML RTU IV SCH (09:46)
[2016-09-16] MEDS: TAMSULOSIN HCL 0.4 MG CAP PO SCH (11:16)
[2016-09-16] MEDS: GLARGINE INSULIN (LANTUS) 100 UNITS/ML PEN SQ SCH (11:17)
[2016-09-16] MEDS: PEG-ELECTROLYTE 17 GM PACK PO SCH ×2 (11:17→21:00)
[2016-09-16] MEDS: AMPICILLIN 2 GM in NS 100 ML IV SCH ×2 (11:17→17:30)
[2016-09-16] MEDS: VITAMINS, MULTIPLE CAP PO SCH (11:18)
[2016-09-16] MEDS: FERROUS SULFATE 324 MG TAB PO SCH ×2 (11:18→16:22)
[2016-09-16] MEDS: PANTOPRAZOLE 40 MG VIAL IV SCH (11:18)
--- NOTE | 2016-09-16 14:26 | DIRPT ---
CLINICAL DATA: Hypertension. Stroke. Diabetes. Tobacco use. EXAM: BILATERAL CAROTID DUPLEX ULTRASOUND TECHNIQUE: Lilly scale imaging, color Doppler and duplex ultrasound were performed of bilateral carotid and vertebral arteries in the neck. COMPARISON: 06/15/2015. FINDINGS: Criteria: Quantification of carotid stenosis is based on velocity parameters that correlate the residual internal carotid diameter with NASCET-based stenosis levels, using the diameter of the distal internal carotid lumen as the denominator for stenosis measurement. The following velocity measurements were obtained: RIGHT ICA: 60/19 cm/sec CCA: 74/13 cm/sec SYSTOLIC ICA/CCA RATIO: 0.81 DIASTOLIC ICA/CCA RATIO: 1.49 ECA: 64 cm/sec LEFT ICA: 72/23 cm/sec CCA: 63/10 cm/sec SYSTOLIC ICA/CCA RATIO: 1.14 DIASTOLIC ICA/CCA RATIO: 2.19 ECA: 48 cm/sec RIGHT CAROTID ARTERY: Normal. No plaque. RIGHT VERTEBRAL ARTERY: Normal antegrade flow. LEFT CAROTID ARTERY: Normal. No plaque. LEFT VERTEBRAL ARTERY: Normal antegrade flow. IMPRESSION: Normal examination. Electronically Signed By: Aurelinao Lee M.D. On: 09/16/2016 14:23
--- NOTE | 2016-09-16 15:20 | GENMEDPROG ---
Chief Complaint: ACUTE CVA, HX OF REMOTE CVA ALSO, AMS, PARALYSIS, SEIZURES, URINARY RETENTION, DM-2 Subjective Note: URINARY CATHETER DISCONTINUED, MONITORING RESIDUAL URINES; Patient more alert today, able to converse with caretakers. speech evaluation reveals delayed swallow, but he does have some swallowing motion, will wait another day and re- evaluate. Notes Reviewed: Yes Events from last night noted and discussed with Clinical Staff Current Medication List: Reviewed Currently: Reports: Nausea and Vomiting, Other (NURSES REPORT RESIDUAL URINES OF 300-350 mL). Denies: Cough, Wheezing, GARCIA, SOB, Abdominal Pain DVT Prophylaxis: Yes - Physical Examination Vital Signs and I&O: Last Vital Signs Temp 97.7 F 09/16/16 11:00 Pulse 76 09/16/16 13:00 Resp 16 09/16/16 07:00 BP 162/93 09/16/16 13:00 Pulse Ox 100 09/16/16 13:00 Oxygen Pulse Oxygen Saturation 100 O2 Device Room Air Oxygen Flow Rate Fraction of Inspired Oxygen ( FIO2) Intake & Output 09/13/16 09/14/16 09/15/16 09/16/16 23:59 23:59 23:59 23:59 Intake Total 3036 3083 3205 1514 Output Total 4306 106 3758 751 Balance 1911 2158 1980 763 Patient's weight 74.077 kg 73.624 kg 73.624 kg 79.067 kg General: Alert, Cooperative, No acute distress, Weakness. negative: Oriented x3 , Mild distress, Well appearing (Chronically ill) HEENT: Normal, PERRLA, Anicteric Sclera Neck: Non-tender, Full range of motion, Normal Trachea alignment, Normal inspection. negative: JVD Lymphatics: Normal (No cervical lymphadenopathy. No supraclavicular lymphadenopathy.) Respiratory: Normal - CTA (Clear to auscultation bilaterally. No wheezing, rales , rhonchi. Chest wall movements are symmetric. No use of accessory muscles to breathe.) Cardiovascular: Regular rate and rhythm, No Gallops,Rubs/Murmurs GI: Soft, Non tender, No hepatospenomegaly Extremities/Musculoskeletal: negative: Tenderness, Swelling, Edema Skin: Warm,Dry and Intact, No rashes, No breakdown Neurological: Normal speech (slow and deliberate), Normal tone, Strength (moves all extremities). negative: Normal Steady Gait, Cranial nerves 3-12 NL Psych/Mental Status: Appropriate, Normal Affect Lab/DI/Studies Reviewed: Laboratory Tests 09/16/16 09/16/16 09/16/16 03:30 03:30 03:30 WBC 8.8 Hgb 9.4 L Hct 28.4 L Plt Count 313 Neut % (Auto) 67.1 Lymph % (Auto) 24.4 [place] % (Auto) 7.6 Sodium 144 Potassium 4.0 Chloride 118 H Carbon Dioxide 16 L Anion Gap 14 BUN 25 H Creatinine 2.30 H Estimated GFR (MDRD) 38 L Glucose 145 H POC Capillary Glucose Calculated Osmolality 284 Calcium 7.4 L Magnesium 2.20 Idy-A-Qnpxeqftzfv Pept 823 H Phenytoin 6.9 L 09/16/16 12:18 WBC Hgb Hct Plt Count Neut % (Auto) Lymph % (Auto) [place]isco[place] % (Auto) Sodium Potassium Chloride Carbon Dioxide Anion Gap BUN Creatinine Estimated GFR (MDRD) Glucose POC Capillary Glucose 136 H Calculated Osmolality Calcium Magnesium Lgx-O-Uvqcdrcurye Pept Phenytoin - Assessment (1) CVA (cerebral vascular accident) Acute I63.9 - CEREBRAL INFARCTION, UNSPECIFIED Qualifiers: CVA mechanism: thrombosis Precerebral and cerebral artery: middle cerebral artery Laterality of affected vessel: right Qualified Code(s): I63.311 - Cerebral infarction due to thrombosis of right middle cerebral artery Comment/Plan: MRI confirms that patient did have another stroke. Location is in posterior limb of right internal capsule. Has regained consciousness and is speaking now. Ordered CVA protocol yesterday. Patient is receiving neuro checks. Patient more alert today, able to converse with caretakers. Speech evaluation reveals delayed swallow, but he does have some swallowing motion, will wait another day and re-evaluate. . Physical therapy and occupational therapy evaluations. Neuro checks q 4 hours. Telemetry. Daily aspirin; may want to consider other medication. May use NG tube to administer meds if still NPO. Continue Statin. (2) Seizure Acute R56.9 - UNSPECIFIED CONVULSIONS Comment/Plan: Likely due to stroke. Continue on IV Keppra and IV Dilantin. Dr. De Dios with Neurology has seen the patient in consultation. Head CT negative for acute abnormality. MRI shows acute CVA in R internal capsule. P.r.n. IV Ativan (3) Hypertensive urgency Acute I16.0 - HYPERTENSIVE URGENCY Comment/Plan: Blood pressure is better controlled. Added additional medications as needed to maintain SBP goal of <180. (4) UTI (urinary tract infection) due to Enterococcus Acute N39.0 - URINARY TRACT INFECTION, SITE NOT SPECIFIED; B95.2 - ENTEROCOCCUS THE CAUSE OF DISEASES CLASSIFIED ELSEWHERE Comment/Plan: URINE CULTURE + Enterococcus, also for pseudomonas. Have started patient on vanc and Levaquin. Monitor renal function closely. (5) Type 2 diabetes mellitus with diabetic polyneuropathy Acute E11.42 - TYPE 2 DIABETES MELLITUS WITH DIABETIC POLYNEUROPATHY Qualifiers: Diabetes mellitus long term care administrator insulin use: unspecified long term care administrator insulin use status Qualified Code(s): E11.42 - Type 2 diabetes mellitus with diabetic polyneuropathy Comment/Plan: Fingerstick blood glucoses a.c. and HS with sliding scale insulin coverage. Continue home medications. Check hemoglobin A1c and urinary microalbumin. (6) Aphasia Chronic R47.01 - APHASIA Comment/Plan: NPO until speech therapy clears for diet. (7) Sinus tachycardia Acute R00.0 - TACHYCARDIA, UNSPECIFIED Comment/Plan: Telemetry. (8) Pressure ulcer of both heels Chronic L89.619 - PRESSURE ULCER OF RIGHT HEEL, UNSPECIFIED STAGE; L89.629 - PRESSURE ULCER OF LEFT HEEL, UNSPECIFIED STAGE Comment/Plan: Local wound care with daily dressings and off-load pressure (9) Nausea and vomiting Resolved R11.2 - NAUSEA WITH VOMITING, UNSPECIFIED Comment/Plan: Likely due to acute infection (UTI) (10) Anemia associated with acute blood loss Acute D62 - ACUTE POSTHEMORRHAGIC ANEMIA (11) UTI (urinary tract infection) due to urinary indwelling Garg catheter Acute T83.511A - I/I REACT D/T INDWELLING URETHRAL CATHETER, INIT; N39.0 - URINARY TRACT INFECTION, SITE NOT SPECIFIED Qualifiers: Indwelling urinary catheter type: indwelling urethral catheter Encounter type: initial encounter Qualified Code(s): T83.511A - Infection and inflammatory reaction due to indwelling urethral catheter, initial encounter; N39.0 - Urinary tract infection, site not specified Comment/Plan: Remove Garg cath, scan bladder q 6 hr; do I&O cath if residual > 200 mL. (12) Upper GI bleed Acute K92.2 - GASTROINTESTINAL HEMORRHAGE, UNSPECIFIED Comment/Plan: HEMATEMESIS-resolved now (13) History of CVA with residual deficit Chronic I69.30 - UNSPECIFIED SEQUELAE OF CEREBRAL INFARCTION Comment/Plan: Noted. Supportive care
[2016-09-16] MEDS: ENOXAPARIN 40 MG/0.4 ML PFS SQ SCH (17:34)
[2016-09-16] MEDS: QUETIAPINE FUMARATE 100 MG TAB PO SCH (20:59)
[2016-09-16] MEDS: PRAVASTATIN 40 MG TABLET PO SCH (20:59)
[2016-09-16] MEDS: SENNA CONCENTRATE TAB PO SCH (21:00)
[2016-09-17] MEDS: REGULAR INSULIN 100 UNITS/ML - 3 ML VIAL SQ SCH ×5 (00:15→23:58)
[2016-09-17] MEDS: IMIPENEM CILASTATIN 250 MG in D5W 100 ML IV SCH ×5 (00:20→23:57)
[2016-09-17] MEDS: PANTOPRAZOLE 40 MG VIAL IV SCH ×3 (00:20→23:58)
[2016-09-17] MEDS: NS 1,000 ML IV SCH ×3 (02:44→20:22)
[2016-09-17] MEDS: hydrALAZINE 20 MG/ML VIAL IV PRN (05:30)
[2016-09-17] MEDS: SODIUM CHLORIDE 0.9% 3 ML FLUSH FLUSH SCH ×2 (05:34→18:10)
[2016-09-17] MEDS ORDERED: LEVOFLOXACIN 750 MG/150 ML IV SCH (06:00)
--- NOTE | 2016-09-17 07:56 | GENMEDPROG ---
Chief Complaint: CVA, HTN, DM-2, dysphagia, urinary retention Currently: Reports: Nausea and Vomiting, Other (NURSES REPORT RESIDUAL URINES OF 300-350 mL). Denies: Cough, Wheezing, GARCIA, SOB, Abdominal Pain DVT Prophylaxis: Yes - Physical Examination Vital Signs and I&O: Last Vital Signs Temp 98.3 F 09/17/16 07:00 Pulse 74 09/17/16 07:00 Resp 16 09/17/16 07:00 BP 171/103 H 09/17/16 07:00 Pulse Ox 100 09/17/16 07:00 Oxygen Pulse Oxygen Saturation 100 O2 Device Room Air Oxygen Flow Rate Fraction of Inspired Oxygen ( FIO2) Intake & Output 09/14/16 09/15/16 09/16/16 09/17/16 23:59 23:59 23:59 23:59 Intake Total 3083 3205 2761 1654 Output Total 925 1225 1451 825 Balance 2158 1980 1310 829 Patient's weight 73.624 kg 73.624 kg 79.067 kg 82.1 kg General: Alert, Cooperative, No acute distress, Weakness. negative: Oriented x3 , Mild distress, Well appearing (Chronically ill) HEENT: Normal, PERRLA, Anicteric Sclera Neck: Non-tender, Full range of motion, Normal Trachea alignment, Normal inspection. negative: JVD Lymphatics: Normal (No cervical lymphadenopathy. No supraclavicular lymphadenopathy.) Respiratory: Normal - CTA (Clear to auscultation bilaterally. No wheezing, rales , rhonchi. Chest wall movements are symmetric. No use of accessory muscles to breathe.) Cardiovascular: Regular rate and rhythm, No Gallops,Rubs/Murmurs GI: Soft, Non tender, No hepatospenomegaly Extremities/Musculoskeletal: negative: Tenderness, Swelling, Edema Skin: Warm,Dry and Intact, No rashes, No breakdown Neurological: Normal speech (slow and deliberate), Normal tone, Strength (moves all extremities). negative: Normal Steady Gait, Cranial nerves 3-12 NL Psych/Mental Status: Appropriate, Normal Affect Patient continues to have 300-400+ mL of retained urine on PVR q6H interval. Suspect he will need permanent indwelling urinary catheter. Lab/DI/Studies Reviewed: Laboratory Tests 09/16/16 09/16/16 09/17/16 03:30 03:30 05:36 Hgb 9.4 L Hct 28.4 L BUN 25 H Creatinine 2.30 H Estimated GFR (MDRD) 38 L Glucose 145 H POC Capillary Glucose 94 - Assessment (1) CVA (cerebral vascular accident) Acute I63.9 - CEREBRAL INFARCTION, UNSPECIFIED Qualifiers: CVA mechanism: thrombosis Precerebral and cerebral artery: middle cerebral artery Laterality of affected vessel: right Qualified Code(s): I63.311 - Cerebral infarction due to thrombosis of right middle cerebral artery Comment/Plan: MRI confirms that patient did have another stroke. Location is in posterior limb of right internal capsule. Has regained consciousness and is speaking now. Ordered CVA protocol yesterday. Patient is receiving neuro checks. Patient more alert today, able to converse with caretakers. Speech evaluation reveals delayed swallow, but he does have some swallowing motion, will wait another day and re-evaluate. . Physical therapy and occupational therapy evaluations. Neuro checks q 4 hours. Telemetry. Daily aspirin; may want to consider other medication. May use NG tube to administer meds if still NPO. Continue Statin. (2) UTI (urinary tract infection) due to Enterococcus Acute N39.0 - URINARY TRACT INFECTION, SITE NOT SPECIFIED; B95.2 - ENTEROCOCCUS THE CAUSE OF DISEASES CLASSIFIED ELSEWHERE Comment/Plan: URINE CULTURE + Enterococcus, also for pseudomonas. Have changed antibiotics to Primaxin, to which both organisms are sensitive. Monitor renal function closely. (3) Seizure Acute R56.9 - UNSPECIFIED CONVULSIONS Comment/Plan: Likely due to stroke. Continue on IV Keppra and Depakote. Dr. De Dios with Neurology has seen the patient in consultation. Head CT negative for acute abnormality. MRI shows acute CVA in R internal capsule. P.r.n. IV Ativan. Change to PO meds as soon as patient is able to swallow. Increasse Depakote dose to to low level and interaction with Primaxin. (4) Hypertensive urgency Acute I16.0 - HYPERTENSIVE URGENCY Comment/Plan: Blood pressure is better controlled. Has NG tube for meds, can give feedings per tube also if needed. Added additional medications as needed to maintain SBP goal of <180. 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 and HS with sliding scale insulin coverage. Continue home medications. Check hemoglobin A1c and urinary microalbumin. (7) Aphasia Chronic R47.01 - APHASIA Comment/Plan: NPO until speech therapy clears for diet. (8) Sinus tachycardia Acute R00.0 - TACHYCARDIA, UNSPECIFIED Comment/Plan: Telemetry. (9) Pressure ulcer of both heels Chronic L89.619 - PRESSURE ULCER OF RIGHT HEEL, UNSPECIFIED STAGE; L89.629 - PRESSURE ULCER OF LEFT HEEL, UNSPECIFIED STAGE Comment/Plan: Local wound care with daily dressings and off-load pressure (10) Nausea and vomiting Resolved R11.2 - NAUSEA WITH VOMITING, UNSPECIFIED Comment/Plan: Likely due to acute infection (UTI) (11) Anemia associated with acute blood loss Acute D62 - ACUTE POSTHEMORRHAGIC ANEMIA (12) UTI (urinary tract infection) due to urinary indwelling Garg catheter Acute T83.511A - I/I REACT D/T INDWELLING URETHRAL CATHETER, INIT; N39.0 - URINARY TRACT INFECTION, SITE NOT SPECIFIED Qualifiers: Indwelling urinary catheter type: indwelling urethral catheter Encounter type: initial encounter Qualified Code(s): T83.511A - Infection and inflammatory reaction due to indwelling urethral catheter, initial encounter; N39.0 - Urinary tract infection, site not specified Comment/Plan: Remove Garg cath, scan bladder q 6 hr; do I&O cath if residual > 200 mL. (13) Upper GI bleed Acute K92.2 - GASTROINTESTINAL HEMORRHAGE, UNSPECIFIED Comment/Plan: HEMATEMESIS-resolved now (14) History of CVA with residual deficit Chronic I69.30 - UNSPECIFIED SEQUELAE OF CEREBRAL INFARCTION Comment/Plan: Noted. Supportive care
[2016-09-17] MEDS: Docusate Sodium 100 MG CAP PO SCH ×2 (08:25→20:15)
[2016-09-17] MEDS: PEG-ELECTROLYTE 17 GM PACK PO SCH ×2 (08:27→20:16)
[2016-09-17] MEDS: GLARGINE INSULIN (LANTUS) 100 UNITS/ML PEN SQ SCH (08:41)
[2016-09-17] MEDS: VALPROATE SODIUM IV SCH (08:57)
[2016-09-17] MEDS: NS IV SCH (08:57)
[2016-09-17] MEDS: TAMSULOSIN HCL 0.4 MG CAP PO SCH (08:58)
[2016-09-17] MEDS: [UNRECOGNIZED DRUG - OTHER] PO SCH ×4 (08:58→20:16)
[2016-09-17] MEDS: BETHANECHOL 25 MG TAB PO SCH (08:58)
[2016-09-17] MEDS: AMLODIPINE 10 MG TAB PO SCH (08:58)
[2016-09-17] MEDS: POTASSIUM CHLORIDE 10 MEQ TABLET PO SCH (08:58)
[2016-09-17] MEDS: MAGNESIUM OXIDE 400 MG TAB PO SCH (08:59)
[2016-09-17] MEDS: FLUOXETINE 20 MG CAP PO SCH (08:59)
[2016-09-17] MEDS: METOPROLOL TARTRATE 100 MG TAB PO SCH ×2 (08:59→20:16)
[2016-09-17] MEDS: CloNIDine 0.2 MG TAB PO SCH ×2 (08:59→20:15)
--- NOTE | 2016-09-17 09:19 | CAPUEEG ---
REFERRING PHYSICIAN: Dr. Allison. DESCRIPTION: This is a routine 18-channel EEG recording with 1 channel devoted to limited EKG recording. This was performed during wakefulness and drowsiness. Photic stimulation was performed as an activating procedure. Hyperventilation was deferred. There is a moderate amount of muscle artifact. Upon maximal arousal, dominant posterior waking rhythm consists frequency of 6-7 hertz with moderate amplitude. This activity appeared symmetric over the bilateral posterior derivations and attenuated with eye opening. Photic stimulation did not significantly alter the tracing. As tracing continues, patient becomes drowsy, but does not enter into sleep. No asymmetries or epileptiform discharges noted throughout tracing. INTERPRETATION: This is an abnormal, routine, adult, awake, and drowsy EEG secondary to mild to moderate diffuse background slowing. CLINICAL CORRELATION: Mild to moderate diffuse background slowing indicates a disturbance in electrophysiologic properties of the lee and white matter in a diffuse or multifocal pattern. Etiologies can include, but are not limited to, metabolic/toxic encephalopathy, postictal state, hypoxic/ischemic encephalopathy, dementia, and infection. Further clinical correlation is advised. [id number]
--- NOTE | 2016-09-17 11:42 | PCM.NEUPN ---
- Physical Exam Vital Signs: Initial Vitals Temperature 98.6 F 09/12/16 11:10 Pulse Rate 105 09/12/16 11:10 Respiratory Rate 20 09/12/16 11:10 Blood Pressure 197/111 H 09/12/16 11:10 Pulse Oxygen Saturation 100 09/12/16 11:10 - Lab Results Laboratory Tests 09/12/16 09/13/16 09/13/16 12:10 04:10 04:10 WBC 23.7 H 29.2 H ESR BUN 27 H Creatinine 2.70 H Glucose 135 H Calcium 8.7 Troponin I Phenytoin Valproic Acid 09/13/16 09/13/16 09/13/16 04:10 04:10 06:05 WBC ESR 122 H BUN Creatinine Glucose Calcium Troponin I 0.03 Phenytoin 12.6 Valproic Acid 09/13/16 09/14/16 09/14/16 11:30 04:36 04:36 WBC 21.4 H ESR BUN 29 H Creatinine 2.50 H Glucose 90 Calcium 7.9 L Troponin I Phenytoin 13.5 8.9 L Valproic Acid 39.1 L 09/16/16 09/16/16 09/16/16 03:30 03:30 03:30 WBC 8.8 ESR BUN 25 H Creatinine 2.30 H Glucose 145 H Calcium 7.4 L Troponin I Phenytoin 6.9 L Valproic Acid - Diagnostic Findings Carotid doppler results: IMPRESSION: Normal examination. - Assessment/Plan (1) CVA (cerebral vascular accident) I63.9 - CEREBRAL INFARCTION, UNSPECIFIED Acute Present on Admission: Yes thrombosis middle cerebral artery right I63.311 - Cerebral infarction due to thrombosis of right middle cerebral artery Comment: Pt asleep but easily awakened. Said his name but not much else. He did follow simple commands moving all extremities except the left lower extremity. He nodded or shook his head appropriately to questions. His EEG showed only moderate slowing c/w postictal state or toxic/metabolic encephalopathy. Dilantin level drifting down and depakote is low at 39 but pt is also on keppra and level is pending, so will not change depakote dose at this time. Continue Asa unless we have documentation that he was on aspirin and would then switch to plavix. Carotid Dopplers were normal. Question of CADASIL raised on MRI brain report. Would discuss with family about genetic testing for CADASIL on OP basis. (2) Seizure R56.9 - UNSPECIFIED CONVULSIONS Acute Present on Admission: Yes Comment: No seizures noted, EEG shows only slowing. Depakote level at 39, Keppra level pending. Case Care Discussed with: Patient, Nursing Staff Plan: 1 Continue Depakote at 500mg tid 2 Continue Keppra at 500mg tid 3 Started daily aspirin but can stop if GI bleed is still significant risk. 4 Continue statin and BP meds 5 PT, OT, ST 6 Address small possibility of CADASIL with pt and family on OP basis. 7 f/u with me in 2-4 weeks
[2016-09-17] MEDS: FERROUS SULFATE 324 MG TAB PO SCH ×2 (12:18→18:09)
[2016-09-17] MEDS: VITAMINS, MULTIPLE CAP PO SCH (12:18)
[2016-09-17] MEDS: ASPIRIN 300 MG SUPP PR SCH (12:19)
[2016-09-17] MEDS ORDERED: VARIBAR NECTAR 40% BARIUM 240 ML ONE (13:01)
[2016-09-17] MEDS ORDERED: VARIBAR THIN 40% BARIUM 250 ML ONE (13:01)
[2016-09-17] MEDS ORDERED: VARIBAR HONEY 40% BARIUM 250 ML ONE (13:01)
[2016-09-17] MEDS: VALPROIC ACID 250 MG CAP PO SCH ×2 (14:33→20:15)
[2016-09-17] MEDS: ENOXAPARIN 40 MG/0.4 ML PFS SQ SCH (18:09)
[2016-09-17] MEDS: [UNRECOGNIZED DRUG - OTHER] PO SCH (18:09)
[2016-09-17] MEDS: SENNA CONCENTRATE TAB PO SCH (20:16)
[2016-09-17] MEDS: QUETIAPINE FUMARATE 100 MG TAB PO SCH (20:16)
[2016-09-17] MEDS: PRAVASTATIN 40 MG TABLET PO SCH (20:16)
[2016-09-18] MEDS: hydrALAZINE 20 MG/ML VIAL IV PRN ×3 (02:53→17:32)
[2016-09-18] MEDS: OXYCODONE HCL 5 MG TABLET PO PRN (04:11)
[2016-09-18] MEDS: IMIPENEM CILASTATIN 250 MG in D5W 100 ML IV SCH ×4 (05:37→23:52)
[2016-09-18] MEDS: REGULAR INSULIN 100 UNITS/ML - 3 ML VIAL SQ SCH ×4 (05:38→23:54)
[2016-09-18] MEDS: SODIUM CHLORIDE 0.9% 3 ML FLUSH FLUSH SCH ×2 (05:40→17:24)
[2016-09-18] MEDS: VALPROIC ACID 250 MG/5 ML PO SCH ×3 (06:15→21:29)
[2016-09-18] MEDS: PEG-ELECTROLYTE 17 GM PACK PO SCH ×2 (07:32→21:29)
[2016-09-18] MEDS: Docusate Sodium 100 MG CAP PO SCH ×2 (07:32→22:41)
[2016-09-18] MEDS: [UNRECOGNIZED DRUG - OTHER] PO SCH ×3 (07:40→17:13)
[2016-09-18] MEDS: METOPROLOL TARTRATE 100 MG TAB PO SCH ×2 (07:40→21:28)
[2016-09-18] MEDS: TAMSULOSIN HCL 0.4 MG CAP PO SCH (07:40)
[2016-09-18] MEDS: FLUOXETINE 20 MG CAP PO SCH (07:40)
[2016-09-18] MEDS: [UNRECOGNIZED DRUG - OTHER] PO SCH ×4 (07:41→21:28)
[2016-09-18] MEDS: CloNIDine 0.2 MG TAB PO SCH ×2 (07:42→21:28)
[2016-09-18] MEDS: POTASSIUM CHLORIDE 10 MEQ TABLET PO SCH (07:42)
[2016-09-18] MEDS: FERROUS SULFATE 324 MG TAB PO SCH ×2 (07:42→17:14)
[2016-09-18] MEDS: AMLODIPINE 10 MG TAB PO SCH (07:42)
[2016-09-18] MEDS: MAGNESIUM OXIDE 400 MG TAB PO SCH (07:42)
[2016-09-18] MEDS: NS 1,000 ML IV SCH ×2 (07:43→17:17)
[2016-09-18] MEDS: VITAMINS, MULTIPLE CAP PO SCH (07:43)
[2016-09-18] MEDS: BETHANECHOL 25 MG TAB PO SCH (07:43)
[2016-09-18] MEDS: ASPIRIN 300 MG SUPP PR SCH (07:59)
[2016-09-18] MEDS: GLARGINE INSULIN (LANTUS) 100 UNITS/ML PEN SQ SCH (09:18)
[2016-09-18] MEDS: PANTOPRAZOLE 40 MG VIAL IV SCH ×2 (11:17→23:52)
[2016-09-18 14:19] VITALS: BMI 26.9
[2016-09-18] MEDS: ENOXAPARIN 40 MG/0.4 ML PFS SQ SCH (17:14)
--- NOTE | 2016-09-18 21:16 | GENMEDPROG ---
Currently: Reports: Nausea and Vomiting, Other (NURSES REPORT RESIDUAL URINES OF 300-350 mL). Denies: Cough, Wheezing, GARCIA, SOB, Abdominal Pain DVT Prophylaxis: Yes - Physical Examination Vital Signs and I&O: Last Vital Signs Temp 97.5 F 09/18/16 19:00 Pulse 74 09/18/16 21:00 Resp 18 09/18/16 21:00 BP 201/109 H 09/18/16 21:00 Pulse Ox 100 09/18/16 21:00 Oxygen Pulse Oxygen Saturation 100 O2 Device Room Air Oxygen Flow Rate Fraction of Inspired Oxygen ( FIO2) Intake & Output 09/15/16 09/16/16 09/17/16 09/18/16 23:59 23:59 23:59 23:59 Intake Total 3205 2761 4410 2869 Output Total 1225 1451 2025 925 Balance 1979 1310 9315 1944 Patient's weight 73.624 kg 79.067 kg 82.1 kg 85.23 kg General: Alert, Cooperative, No acute distress, Weakness. negative: Oriented x3 , Mild distress, Well appearing (Chronically ill) HEENT: Normal, PERRLA, Anicteric Sclera Neck: Non-tender, Full range of motion, Normal Trachea alignment, Normal inspection. negative: JVD Lymphatics: Normal (No cervical lymphadenopathy. No supraclavicular lymphadenopathy.) Respiratory: Normal - CTA (Clear to auscultation bilaterally. No wheezing, rales , rhonchi. Chest wall movements are symmetric. No use of accessory muscles to breathe.) Cardiovascular: Regular rate and rhythm, No Gallops,Rubs/Murmurs GI: Soft, Non tender, No hepatospenomegaly Extremities/Musculoskeletal: negative: Tenderness, Swelling, Edema Skin: Warm,Dry and Intact, No rashes, No breakdown Neurological: Normal speech (slow and deliberate), Normal tone, Strength (moves all extremities). negative: Normal Steady Gait, Cranial nerves 3-12 NL Psych/Mental Status: Appropriate, Normal Affect - Assessment (1) CVA (cerebral vascular accident) Acute I63.9 - CEREBRAL INFARCTION, UNSPECIFIED Qualifiers: CVA mechanism: thrombosis Precerebral and cerebral artery: middle cerebral artery Laterality of affected vessel: right Qualified Code(s): I63.311 - Cerebral infarction due to thrombosis of right middle cerebral artery Comment/Plan: MRI confirms that patient did have another stroke. Location is in posterior limb of right internal capsule. Has regained consciousness and is speaking now. Ordered CVA protocol yesterday. Patient is receiving neuro checks. Patient more alert today, able to converse with caretakers. Speech evaluation reveals delayed swallow, but he does have some swallowing motion, will wait another day and re-evaluate. . Physical therapy and occupational therapy evaluations. Neuro checks q 4 hours. Telemetry. Daily aspirin; may want to consider other medication. May use NG tube to administer meds if still NPO. Continue Statin. (2) UTI (urinary tract infection) due to Enterococcus Acute N39.0 - URINARY TRACT INFECTION, SITE NOT SPECIFIED; B95.2 - ENTEROCOCCUS THE CAUSE OF DISEASES CLASSIFIED ELSEWHERE Comment/Plan: URINE CULTURE + Enterococcus, also for pseudomonas. Have changed antibiotics to Primaxin, to which both organisms are sensitive. Monitor renal function closely. (3) Seizure Acute R56.9 - UNSPECIFIED CONVULSIONS Comment/Plan: Likely due to stroke. Continue on IV Keppra and Depakote. Dr. De Dios with Neurology has seen the patient in consultation. Head CT negative for acute abnormality. MRI shows acute CVA in R internal capsule. P.r.n. IV Ativan. Change to PO meds as soon as patient is able to swallow. Increasse Depakote dose to to low level and interaction with Primaxin. (4) Hypertensive urgency Acute I16.0 - HYPERTENSIVE URGENCY Comment/Plan: Blood pressure is better controlled. Has NG tube for meds, can give feedings per tube also if needed. Added additional medications as needed to maintain SBP goal of <180. (5) CKD stage 3 due to type 2 diabetes mellitus Acute E11.22 - TYPE 2 DIABETES MELLITUS W DIABETIC CHRONIC KIDNEY DISEASE; N18.3 - CHRONIC KIDNEY DISEASE, STAGE 3 (MODERATE) Comment/Plan: BUN & creatinine probably at baseline now, eGFR =38 (6) Type 2 diabetes mellitus with diabetic polyneuropathy Acute E11.42 - TYPE 2 DIABETES MELLITUS WITH DIABETIC POLYNEUROPATHY Qualifiers: Diabetes mellitus snf insulin use: unspecified snf insulin use status Qualified Code(s): E11.42 - Type 2 diabetes mellitus with diabetic polyneuropathy Comment/Plan: Fingerstick blood glucoses a.c. and HS with sliding scale insulin coverage. Continue home medications. Check hemoglobin A1c and urinary microalbumin. (7) Aphasia Chronic R47.01 - APHASIA Comment/Plan: NPO until speech therapy clears for diet. (8) Sinus tachycardia Acute R00.0 - TACHYCARDIA, UNSPECIFIED Comment/Plan: Telemetry. (9) Pressure ulcer of both heels Chronic L89.619 - PRESSURE ULCER OF RIGHT HEEL, UNSPECIFIED STAGE; L89.629 - PRESSURE ULCER OF LEFT HEEL, UNSPECIFIED STAGE Comment/Plan: Local wound care with daily dressings and off-load pressure (10) Nausea and vomiting Resolved R11.2 - NAUSEA WITH VOMITING, UNSPECIFIED Comment/Plan: Likely due to acute infection (UTI) (11) Anemia associated with acute blood loss Acute D62 - ACUTE POSTHEMORRHAGIC ANEMIA (12) UTI (urinary tract infection) due to urinary indwelling Garg catheter Acute T83.511A - I/I REACT D/T INDWELLING URETHRAL CATHETER, INIT; N39.0 - URINARY TRACT INFECTION, SITE NOT SPECIFIED Qualifiers: Indwelling urinary catheter type: indwelling urethral catheter Encounter type: initial encounter Qualified Code(s): T83.511A - Infection and inflammatory reaction due to indwelling urethral catheter, initial encounter; N39.0 - Urinary tract infection, site not specified Comment/Plan: Remove Garg cath, scan bladder q 6 hr; do I&O cath if residual > 200 mL. (13) Upper GI bleed Acute K92.2 - GASTROINTESTINAL HEMORRHAGE, UNSPECIFIED Comment/Plan: HEMATEMESIS-resolved now (14) History of CVA with residual deficit Chronic I69.30 - UNSPECIFIED SEQUELAE OF CEREBRAL INFARCTION Comment/Plan: Noted. Supportive care
[2016-09-18] MEDS: PRAVASTATIN 40 MG TABLET PO SCH (21:28)
[2016-09-18] MEDS: QUETIAPINE FUMARATE 100 MG TAB PO SCH (21:28)
[2016-09-18] MEDS: LABETALOL 20 MG/4 ML SYRINGE IV PRN (21:29)
[2016-09-18] MEDS: SENNA CONCENTRATE TAB PO SCH (22:41)
[2016-09-19] MEDS: hydrALAZINE 20 MG/ML VIAL IV PRN ×2 (00:05→15:51)
[2016-09-19] MEDS: LABETALOL 20 MG/4 ML SYRINGE IV PRN ×2 (02:15→05:20)
[2016-09-19] MEDS: NS 1,000 ML IV SCH (02:16)
[2016-09-19] MEDS: REGULAR INSULIN 100 UNITS/ML - 3 ML VIAL SQ SCH ×2 (05:09→13:29)
[2016-09-19] MEDS: VALPROIC ACID 250 MG/5 ML PO SCH ×2 (05:09→14:11)
[2016-09-19] MEDS: SODIUM CHLORIDE 0.9% 3 ML FLUSH FLUSH SCH (05:09)
[2016-09-19] MEDS: IMIPENEM CILASTATIN 250 MG in D5W 100 ML IV SCH ×2 (05:10→11:55)
[2016-09-19] MEDS ORDERED: LEVETIRACETAM 100 MG/ML ORAL SOLN PO SCH (06:00)
--- NOTE | 2016-09-19 08:41 | PCM.DCS92 ---
- Final/Secondary Discharge Diagnosis (1) CVA (cerebral vascular accident) Acute I63.9 - CEREBRAL INFARCTION, UNSPECIFIED Present on Admission: Yes thrombosis middle cerebral artery right I63.311 - Cerebral infarction due to thrombosis of right middle cerebral artery Comment: MRI confirms that patient did have another stroke. Location is in posterior limb of right internal capsule. Has regained consciousness and is speaking now. Alert and interactive. Speech therapy and physical therapy to continue to follow. Stable for transfer to longterm facility (2) Seizure Acute R56.9 - UNSPECIFIED CONVULSIONS Present on Admission: Yes Comment: EEG with slowing. Appreciate Neurology evaluations. Continue Keppra and Depakote. Stable to return to longterm facility. (3) Leukocytosis Acute D72.829 - ELEVATED WHITE BLOOD CELL COUNT, UNSPECIFIED unspecified D72.829 - Elevated white blood cell count, unspecified Comment: Resolved. 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 Appears at baseline (7) Schizophrenia Chronic F20.9 - SCHIZOPHRENIA, UNSPECIFIED Present on Admission: Yes unspecified F20.9 - Schizophrenia, unspecified Comment: Continue home medications. Much more alert and interactive. Appears at baseline. (8) Infectious gastroenteritis Resolved A09 - INFECTIOUS GASTROENTERITIS AND COLITIS, UNSPECIFIED Present on Admission: Yes Comment: Resolved Discharge Disposition: [facility] Discharge Condition: Improved Cognitive Discharge Status: Cognitive deficits prevent decision making for safety. Fuctional Discharge Status: Deconditioning, Post-op Weakness Physician Follow up/Referrals: Sudhir Ashford MD [Staff Physician] - Two Weeks Fredy Vinson MD [Primary Care Provider] - One Week Home Medications / New Prescriptions: New Aspirin [Aspirin EC] 325 mg PO DAILY #30 tablet. Levetiracetam [Keppra] 500 mg PO TID #90 tablet Metoprolol Tartrate [Lopressor] 100 mg PO BID #60 tablet Pravastatin [Pravachol] 40 mg PO HS #30 tablet Valproic Acid [Depakene] 500 mg PO TID #90 capsule Continue Fluoxetine HCl [Prozac] 40 mg PO DAILY HydrALAZINE (Cardiovascular) [Apresoline] 50 mg PO QID Amlodipine Besylate 10 mg PO DAILY Sucralfate [Carafate] 1 gm PO QID Docusate Sodium 100 mg PO BID Quetiapine Fumarate [Seroquel] 200 mg PO QHS Sennosides [Senna] 2 tab PO HS Omeprazole [Prilosec] 20 mg PO BID Ferrous Sulfate [Feosol] 325 mg PO BID Guaifenesin [Robitussin] 15 ml PO Q6H PRN PRN Reason: Cough CloNIDine (Antihypertensive) [Catapres] 0.2 tab PO BID Acetaminophen [Tylenol] 650 mg PO Q6H PRN PRN Reason: Pain Temazepam [Restoril] 15 mg PO QHS PRN PRN Reason: Sleep Or Insomnia Tamsulosin HCl [Flomax] 0.4 mg PO QAM Magnesium Oxide [Magnesium] 400 mg PO DAILY Mag Hydrox/Al Hydrox/Simeth [Maalox Suspension] 30 ml PO Q3H PRN PRN Reason: INDIGESTION Insulin Glargine [Lantus Pen] 8 units SQ QAM Potassium Chloride 10 meq PO DAILY Multivitamin [One Daily Essential] 1 tab PO DAILY Polyethylene Glycol 3350 [Miralax] 17 gm PO BID Ergocalciferol (Vitamin D2) [Vitamin D2 (ergocalciferol)] 50,000 units PO QMONTH Bethanechol Chloride [Urecholine] 25 mg PO DAILY Ondansetron HCl [Zofran] 4 mg PO Q8H PRN PRN Reason: Nausea/Vomiting Oxycodone HCl [Roxicodone] 5 mg PO Q6H PRN #30 tablet PRN Reason: Pain Discontinued Metoprolol Tartrate [Lopressor] 50 tab TUBE BID Discharge Home Medication List Fluoxetine HCl [Prozac] 40 mg PO DAILY 06/29/15 [History Confirmed 09/12/16 Last Taken 09/11/16] HydrALAZINE (Cardiovascular) [Apresoline] 50 mg PO QID 06/29/15 [History Confirmed 09/12/16 Last Taken 09/11/16] Amlodipine Besylate 10 mg PO DAILY 09/12/15 [History Confirmed 09/12/16 Last Taken 09/11/16] Sucralfate [Carafate] 1 gm PO QID 02/12/16 [History Confirmed 09/12/16 Last Taken 09/11/16] Docusate Sodium 100 mg PO BID 04/25/16 [History Confirmed 09/12/16 Last Taken ] Quetiapine Fumarate [Seroquel] 200 mg PO QHS 06/02/16 [History Confirmed Last Taken 09/11/16] Ferrous Sulfate [Feosol] 325 mg PO BID 06/13/16 [History Confirmed 09/12/16 Last Taken 09/11/16] Guaifenesin [Robitussin] 15 ml PO Q6H PRN 06/13/16 [History Confirmed 09/12/16 Last Taken 08/31/16] Omeprazole [Prilosec] 20 mg PO BID 06/13/16 [History Confirmed 09/12/16 Last Taken 09/11/16] Sennosides [Senna] 2 tab PO HS 06/13/16 [History Confirmed 09/12/16 Last Taken 09/11/16] CloNIDine (Antihypertensive) [Catapres] 0.2 tab PO BID 07/30/16 [History Confirmed 09/12/16 Last Taken 09/11/16] Acetaminophen [Tylenol] 650 mg PO Q6H PRN 09/12/16 [History Confirmed 09/12/16 Last Taken 09/01/16] Bethanechol Chloride [Urecholine] 25 mg PO DAILY 09/12/16 [History Confirmed Last Taken 09/11/16] Ergocalciferol (Vitamin D2) [Vitamin D2 (ergocalciferol)] 50,000 units PO QMONTH 09/12/16 [History Confirmed 09/12/16 Last Taken 08/20/16] Insulin Glargine [Lantus Pen] 8 units SQ QAM 09/12/16 [History Confirmed Last Taken 09/11/16] Mag Hydrox/Al Hydrox/Simeth [Maalox Suspension] 30 ml PO Q3H PRN 09/12/16 [ History Confirmed 09/12/16 Last Taken Unknown] Magnesium Oxide [Magnesium] 400 mg PO DAILY 09/12/16 [History Confirmed Last Taken 09/11/16] Multivitamin [One Daily Essential] 1 tab PO DAILY 09/12/16 [History Confirmed Last Taken 09/11/16] Ondansetron HCl [Zofran] 4 mg PO Q8H PRN 09/12/16 [History Confirmed 09/12/16 Last Taken Unknown] Polyethylene Glycol 3350 [Miralax] 17 gm PO BID 09/12/16 [History Confirmed Last Taken 09/11/16] Potassium Chloride 10 meq PO DAILY 09/12/16 [History Confirmed 09/12/16 Last Taken 09/11/16] Tamsulosin HCl [Flomax] 0.4 mg PO QAM 09/12/16 [History Confirmed 09/12/16 Last Taken 09/11/16] Temazepam [Restoril] 15 mg PO QHS PRN 09/12/16 [History Confirmed 09/12/16 Last Taken 09/03/16] Aspirin [Aspirin EC] 325 mg PO DAILY #30 tablet. 09/19/16 [Rx Last Taken Unknown] Levetiracetam [Keppra] 500 mg PO TID #90 tablet 09/19/16 [Rx Last Taken Unknown] Metoprolol Tartrate [Lopressor] 100 mg PO BID #60 tablet 09/19/16 [Rx Last Taken Unknown] Oxycodone HCl [Roxicodone] 5 mg PO Q6H PRN #30 tablet 09/19/16 [Rx Last Taken Unknown] Pravastatin [Pravachol] 40 mg PO HS #30 tablet 09/19/16 [Rx Last Taken Unknown] Valproic Acid [Depakene] 500 mg PO TID #90 capsule 09/19/16 [Rx Last Taken Unknown] O2 Device: Room Air Diet at Discharge: Cardiac (Pureed solids with thin liquids), Other (Will need continued speech therapy) Activity: As Tolerated (Physical therapy for strength and mobility) Call Office For: Worsening Symptoms - DC Summary Notes Hospital Course Note:: Discharge summary on patient named FARHAN ADAMS JR admitted to [facility] on 09/12/16 by Ruth Allison MD. Date of discharge is []. Mr. Adams is a 40-year-old male with history of schizophrenia chronic renal disease multiple other medical problems who presented to the hospital with altered mental status. He was found to be actively seizing. He was admitted to the intensive care unit provided supportive care. He was started on IV Keppra and continued on Depakote. We had Neurology see him in consultation. He underwent MRI which confirmed a new stroke in the posterior limb of his right internal capsule. He was essentially unresponsive for several days but over the last few days has been more and more alert. Currently is sitting up in bed and interactive. His speech is slow but fluent. He is able to communicate all his needs. An EEG was done which showed slowing but no active seizure activity. Neurology has recommended continuing the Keppra and Depakote. We are also treating for stroke with aspirin and pravastatin. We are aware of his Lipitor allergy but he has tolerated pravastatin the last several days and this will need to be monitored as an outpatient. Blood pressures have been elevated but are trending down. Speech therapy has been evaluating him. He has not had any overt signs of aspiration but they have recommended pureed diet with thin liquids. He will need continued physical therapy, speech therapy and occupational therapy evaluations at the longterm facility. Only other issue during hospitalization it is urinary tract infection due to Enterococcus. This was treated with IV antibiotics and is stable currently. His renal function diabetes and multiple other medical issues are currently stable. At this point he is much more alert and interactive. He sitting up in bed watching TV. He has reached maximal hospital benefit and is stable for discharge to longterm facility. Dr. Ashford will follow up with him in 2 weeks to monitor his progress Total Time: 1 hour - Physical Exam Vital Signs: Last Vital Signs Temp 97.9 F 09/19/16 06:00 Pulse 79 09/19/16 06:00 Resp 18 09/19/16 06:00 BP 163/96 09/19/16 06:00 Pulse Ox 98 09/19/16 06:00 Oxygen Pulse Oxygen Saturation 98 O2 Device Room Air Oxygen Flow Rate Fraction of Inspired Oxygen ( FIO2) Constitutional: No apparent distress, Well nourished, Well appearing Oriented to: Person, Place - HEENT Head: Normal (normocephalic, atraumatic.), Other (No cervical lymphadenopathy. No supraclavicular lymphadenopathy. Neck: No palpable mass, supple , trachea midline.) Eye: Normal Oropharynx: Normal (Pharynx: Moist without exudate,Gums-no swelling, No oropharyngeal lesions or erythema, Mucous membranes are dry.) Nose: No Symptoms Reported (septum midline, Nares patent, without discharge or bleeding.) - Respiratory/Cardiovascular Respiratory: Normal - CTA (Clear to auscultation bilaterally. No wheezing, rales , rhonchi. Chest wall movements are symmetric. No use of accessory muscles to breathe.) Cardiovascular: Normal - GI Auscultation: Normal (normal active sounds) Palpation: Normal (Soft,non distended,nontender. No hepatosplenomegaly.), Other (PEG tube in place) Tenderness: Non tender (No rebound or guarding) Cleveland's Sign: Negative - Musculoskeletal Back: Normal (Non-Tender) Extremities: Normal (Normal tone, DP pulses 2+ bilaterally, No cyanosis or edema bilaterally, FROM bilaterally.) - Integumentary Skin: Warm, Dry Lymphatics: Normal (No cervical lymphadenopathy. No supraclavicular lymphadenopathy.) - Neurologic Memory Impaired: Short-term Motor Function: Other (slow to respond) Cranial Nerve: Other (speech slow but clear/fluent/intelligible) Cerebellar: Normal Mood Description: Appropriate Thought: Coherent Perception: Normal
[2016-09-19] MEDS: PEG-ELECTROLYTE 17 GM PACK PO SCH (08:42)
[2016-09-19] MEDS: Docusate Sodium 100 MG CAP PO SCH (08:43)
[2016-09-19] MEDS: GLARGINE INSULIN (LANTUS) 100 UNITS/ML PEN SQ SCH (10:05)
[2016-09-19] MEDS: BETHANECHOL 25 MG TAB PO SCH (10:06)
[2016-09-19] MEDS: VITAMINS, MULTIPLE CAP PO SCH (10:06)
[2016-09-19] MEDS: [UNRECOGNIZED DRUG - OTHER] PO SCH ×2 (10:06→11:21)
[2016-09-19] MEDS: [UNRECOGNIZED DRUG - OTHER] PO SCH ×2 (10:06→11:55)
[2016-09-19] MEDS: FERROUS SULFATE 324 MG TAB PO SCH (10:07)
[2016-09-19] MEDS: FLUOXETINE 20 MG CAP PO SCH (10:07)
[2016-09-19] MEDS: TAMSULOSIN HCL 0.4 MG CAP PO SCH ×2 (10:07→11:21)
[2016-09-19] MEDS: AMLODIPINE 10 MG TAB PO SCH (10:07)
[2016-09-19] MEDS: POTASSIUM CHLORIDE 10 MEQ TABLET PO SCH (10:07)
[2016-09-19] MEDS: CloNIDine 0.2 MG TAB PO SCH ×2 (10:07→11:55)
[2016-09-19] MEDS: PANTOPRAZOLE 40 MG VIAL IV SCH (10:08)
[2016-09-19] MEDS: ASPIRIN 300 MG SUPP PR SCH (10:08)
[2016-09-19] MEDS: METOPROLOL TARTRATE 100 MG TAB PO SCH ×2 (10:08→11:55)
[2016-09-19] MEDS: MAGNESIUM OXIDE 400 MG TAB PO SCH (10:08)
[2016-09-19] MEDS: OXYCODONE HCL 5 MG TABLET PO PRN (10:19)
[2016-09-19 14:12] VITALS: PULSE 76
[2016-09-19 14:26] VITALS: TEMP 98.1
[2016-09-19 16:50] VITALS: BP 180/104; TEMP 98
== END 2016-09-19 16:59 | DRG 64 ==
LOC: ED 11:01 → MPS3 15:32 → PCU 09-13 03:17 → ICU 09-13 04:11
PROVIDERS: ADMIT Hospitalist; ATTEND Hospitalist
PROC: 05H933Z Insertion of Infusion Device into Right Brachial Vein, Percutaneous Approach (ICD-10-PCS; principal; 2016-09-12)
PROC: B51MZZA Fluoroscopy of Right Upper Extremity Veins, Guidance (ICD-10-PCS; 2016-09-12)
DX: I63.311 Cerebral infarction due to thrombosis of right middle cerebral artery (principal); K22.6 Gastro-esophageal laceration-hemorrhage syndrome; E11.42 Type 2 diabetes mellitus with diabetic polyneuropathy; E11.22 Type 2 diabetes mellitus with diabetic chronic kidney disease; N17.9 Acute kidney failure, unspecified; N18.3 Chronic kidney disease, stage 3 (moderate); R56.9 Unspecified convulsions; D62 Acute posthemorrhagic anemia; N39.0 Urinary tract infection, site not specified; T83.511A Infection and inflammatory reaction due to indwelling urethral catheter, initial encounter; A08.4 Viral intestinal infection, unspecified; R47.01 Aphasia; E86.0 Dehydration; Z79.4 Long term (current) use of insulin; F20.9 Schizophrenia, unspecified; I12.9 Hypertensive chronic kidney disease with stage 1 through stage 4 chronic kidney disease, or unspecified chronic kidney disease; K21.9 Gastro-esophageal reflux disease without esophagitis; Z87.19 Personal history of other diseases of the digestive system; D72.829 Elevated white blood cell count, unspecified; Z79.899 Other long term (current) drug therapy; Z86.73 Personal history of transient ischemic attack (TIA), and cerebral infarction without residual deficits; Z87.891 Personal history of nicotine dependence; I16.0 Hypertensive urgency; R00.0 Tachycardia, unspecified; L89.619 Pressure ulcer of right heel, unspecified stage; L89.629 Pressure ulcer of left heel, unspecified stage; B95.2 Enterococcus as the cause of diseases classified elsewhere; R53.81 Other malaise; B96.5 Pseudomonas (aeruginosa) (mallei) (pseudomallei) as the cause of diseases classified elsewhere; Y84.6 Urinary catheterization as the cause of abnormal reaction of the patient, or of later complication, without mention of misadventure at the time of the procedure; Z88.8 Allergy status to other drugs, medicaments and biological substances
CPT/HCPCS: 36415; 36569; 51798; 70450; 70551; 71010; 76937; 77001; 80048; 80053; 80061; 80164; 80177; 80185; 81001; 82043; 82550; 82553; 82962; 83036; 83605; 83735; 83880; 84443; 84484; 85007; 85025; 85027; 85610; 85651; 85730; 86850; 86900; 86901; 87040; 87077; 87086; 87186; 87641; 93005; 93880; 95819; 96360; 96372; 97161; 97163; 97166; 99284; J0133; J0290; J0360; J0743; J1165; J1650; J1953; J1956; J2001; J2020; J2060; J2405; J2550; J3490; J7030; J7050; J7060; Q2009; S0164

== ENCOUNTER 2016-09-22 10:51 | Emergency (ER) | payer MEDICAID ==
[2016-09-22 10:52] VITALS: BMI 26.9
[2016-09-22 11:09] VITALS: TEMP 97.8
--- NOTE | 2016-09-22 12:17 | EDPRACDOC ---
- General Information Chief Complaint: Nausea,Vomiting,Diarrhea Stated Complaint: GI PROBLEMS Time Seen by Provider: 09/22/16 11:58 Information Source: Patient Home Medications: Home Medications Fluoxetine HCl [Prozac] 40 mg PO 0900 06/29/15 HydrALAZINE (Cardiovascular) [Apresoline] 50 mg PO QID 06/29/15 Amlodipine Besylate 10 mg PO 0900 09/12/15 Sucralfate [Carafate] 1 gm PO QID 02/12/16 Docusate Sodium 100 mg PO BID 04/25/16 Quetiapine Fumarate [Seroquel] 200 mg PO QHS 06/02/16 Ferrous Sulfate [Feosol] 325 mg PO BID 06/13/16 Guaifenesin [Robitussin] 15 ml PO Q6H PRN 06/13/16 Omeprazole [Prilosec] 20 mg PO BID 06/13/16 Sennosides [Senna] 2 tab PO HS 06/13/16 CloNIDine (Antihypertensive) [Catapres] 0.2 mg PO BID 07/30/16 Acetaminophen [Tylenol] 650 mg PO Q6H PRN 09/12/16 Bethanechol Chloride [Urecholine] 25 mg PO 0900 09/12/16 Mag Hydrox/Al Hydrox/Simeth [Maalox Suspension] 30 ml PO Q3H PRN 09/12/16 Magnesium Oxide [Magnesium] 400 mg PO 0900 09/12/16 Ondansetron HCl [Zofran] 4 mg PO Q8H PRN 09/12/16 Polyethylene Glycol 3350 [Miralax] 17 gm PO BID 09/12/16 Potassium Chloride 10 meq PO 0900 09/12/16 Tamsulosin HCl [Flomax] 0.4 mg PO 0900 09/12/16 Temazepam [Restoril] 15 mg PO QHS PRN 09/12/16 Levetiracetam [Keppra] 500 mg PO TID #90 tablet 09/19/16 Metoprolol Tartrate [Lopressor] 100 mg PO BID #60 tablet 09/19/16 Oxycodone HCl [Roxicodone] 5 mg PO Q6H PRN #30 tablet 09/19/16 Aspirin [Aspirin EC] 325 mg PO 0900 09/22/16 Insulin Detemir [Levemir Flextouch] 8 unit SQ 0909/22/16 Multivitamin [One Daily Essential] 1 each PO 0900 09/22/16 Pravastatin [Pravachol] 40 mg PO 2100 09/22/16 Valproic Acid [Depakene] 500 mg PO TID 09/22/16 Allergies/Adverse Reactions: Allergies Allergy/AdvReac Type Severity Reaction Status Date / Time Latex, Natural Rubber Allergy Intermediate Rash-Locali Verified 09/22/16 14:12 zed atorvastatin calcium Allergy See Verified 09/22/16 14:12 [From Lipitor] Comments - History of Present Illness Onset: [employer] HPI: VOMITED BLOOD THIS AM AT [facility]: PT HAS H/O GASTRITIS AND ALLYSON RASMUSSEN TEAR, LAST EGD DONE RH DR ZARATE . PT ON ASA FOR CVA PROPHYLAXIS. Associated Signs and Symptoms: Reports: Nausea, Vomiting. Denies: Diarrhea ED Past Medical History - History Reviewed Yes Nurses notes reviewed and agree except as marked Information Unobtainable: Yes Unable to obtain information due to patient condition - Patient Medical History Neurological History: Reports: Cerebrovascular Accident (2013-Slurred speech,) Cardiac History: Reports: Hypertension Respiratory History: Denies: Pneumonia, Pulmonary Embolism (but has history of DVT per medical records) GI/ History: Reports: Renal Disease (CKD stage 3), Gastroesophageal Reflux ( and esophageal stricture. EGD 01/2016 Dr. Vicente, no ulcers.), Ulcer (in past. No ulcer on EGD 01/2016, Dr. Vicente) Musculoskeletal History: Reports: Arthritis Psychological History: Reports: Schizophrenia. Denies: Depression, Substance Use Disorder Systemic History: Reports: Diabetes (Type 2) - Family Medical History Reports: Hypertension (father,Sister), Diabetes (father), Cancer (mother (colon) ), Stroke (father). Denies: Cardiac Disorders - Social Medical History Smoking Status: Never smoker Social History: Denies: Substance Use Disorder EDM Review of Systems - Review of Systems ROS Negative Except as Marked: Yes All systems reviewed and were negative except as marked ROS Unobtainable: Yes Review of systems cannot be obtained due to the patient's medical condition - Physical Exam Constitutional: Alert, Other (MINIMAL VERBAL CAPABILITIES) Last recorded Vital Signs: Last Vital Signs Temp 97.8 F 09/22/16 11:05 Pulse 84 09/22/16 11:30 Resp 20 09/22/16 11:30 BP 216/122 H 09/22/16 11:30 Pulse Ox 97 09/22/16 11:30 Oxygen Pulse Oxygen Saturation 97 O2 Device Room Air Oxygen Flow Rate Fraction of Inspired Oxygen ( FIO2) - HEENT Head: Normal Oropharynx: Other (BROWN STAINED SECRETIONS) Nose: No Symptoms Reported - Respiratory/Cardiovascular Respiratory: Normal - CTA Cardiovascular: Normal - GI Auscultation: Normal Palpation: Normal Tenderness: Non tender. negative: Guarding, Rebound, Rigidity Cleveland's Sign: Negative - Neurologic Memory Impaired: Unable to Test Cerebellar: Unable to Test Mood Description: Calm, Flat - Results 09/22/16 13:36 09/22/16 13:36 - Diagnostic Imaging Abdomen Image interpreted by: Radiologist Patient Name: FARHAN RAMIREZ JR LOC: ED : 1975 AGE: 40 Order Date:09/22/16 Date of Service: Report # [id number] Ord Physician: Pau Rodriguez MD Exam # [id number] Emergency Physician: Pau Rodriguez MD Exam(s): [id number] RAD/DG ACUTE ABDOMEN/3WAY CLINICAL DATA: Shortness of breath. History of gastritis. EXAM: DG ABDOMEN ACUTE W/ 1V CHEST COMPARISON: None. FINDINGS: There is no evidence of dilated bowel loops or free intraperitoneal air. There is contrast in the colon from a barium swallow. No radiopaque calculi or other significant radiographic abnormality is seen. Heart size and mediastinal contours are within normal limits. Both lungs are clear. IMPRESSION: Negative abdominal radiographs. No acute cardiopulmonary disease. Electronically Signed By: Linda Dash On: 09/22/2016 13:28 Electronically Signed By: Linda Dash MD Electronically Signed Date/Time: [id number] Dictate Date/Time: 09/22/16 1325 Technologist: Ilene Kennedy Transcribed By: Edil Transcribed Date/Time: 09/22/16 1328 - Additional Information KNOWN CAUSES FOR UGIB / HEMATOCHEZIA. HG STABLE,VITALS STABLE (PT NOT GIVEN BP MEDS THIS AM). - Departure Disposition: [facility] Condition: Stable Final Diagnosis: Hematemesis with nausea Instructions: Acute Nausea and Vomiting (ED) Education/Counseling Given To: Patient, Medical Malpractice Paralegal Education/Counseling Given Regarding: Diagnosis, Treatment, Prognosis Referrals: Fredy Vinson MD [Primary Care Provider] - One Week Prescriptions: No Action Fluoxetine HCl [Prozac] 40 mg PO 0900 HydrALAZINE (Cardiovascular) [Apresoline] 50 mg PO QID Amlodipine Besylate 10 mg PO 0900 Sucralfate [Carafate] 1 gm PO QID Docusate Sodium 100 mg PO BID Quetiapine Fumarate [Seroquel] 200 mg PO QHS Sennosides [Senna] 2 tab PO HS Omeprazole [Prilosec] 20 mg PO BID Ferrous Sulfate [Feosol] 325 mg PO BID Guaifenesin [Robitussin] 15 ml PO Q6H PRN PRN Reason: Cough CloNIDine (Antihypertensive) [Catapres] 0.2 mg PO BID Acetaminophen [Tylenol] 650 mg PO Q6H PRN PRN Reason: Pain Temazepam [Restoril] 15 mg PO QHS PRN PRN Reason: Sleep Or Insomnia Tamsulosin HCl [Flomax] 0.4 mg PO 0900 Magnesium Oxide [Magnesium] 400 mg PO 0900 Mag Hydrox/Al Hydrox/Simeth [Maalox Suspension] 30 ml PO Q3H PRN PRN Reason: INDIGESTION Potassium Chloride 10 meq PO 0900 Polyethylene Glycol 3350 [Miralax] 17 gm PO BID Bethanechol Chloride [Urecholine] 25 mg PO 0900 Ondansetron HCl [Zofran] 4 mg PO Q8H PRN PRN Reason: Nausea/Vomiting Levetiracetam [Keppra] 500 mg PO TID #90 tablet Metoprolol Tartrate [Lopressor] 100 mg PO BID #60 tablet Oxycodone HCl [Roxicodone] 5 mg PO Q6H PRN #30 tablet PRN Reason: Pain Valproic Acid [Depakene] 500 mg PO TID Pravastatin [Pravachol] 40 mg PO 2100 Multivitamin [One Daily Essential] 1 each PO 0900 Insulin Detemir [Levemir Flextouch] 8 unit SQ 0900 Aspirin [Aspirin EC] 325 mg PO 0900
[2016-09-22] MEDS ORDERED: METOPROLOL TARTRATE 25 MG TAB PO ONE (12:59)
--- NOTE | 2016-09-22 13:30 | DIRPT ---
CLINICAL DATA: Shortness of breath. History of gastritis. EXAM: DG ABDOMEN ACUTE W/ 1V CHEST COMPARISON: None. FINDINGS: There is no evidence of dilated bowel loops or free intraperitoneal air. There is contrast in the colon from a barium swallow. No radiopaque calculi or other significant radiographic abnormality is seen. Heart size and mediastinal contours are within normal limits. Both lungs are clear. IMPRESSION: Negative abdominal radiographs. No acute cardiopulmonary disease. Electronically Signed By: Linda Dash On: 09/22/2016 13:28
[2016-09-22 13:50] LABS: AUTOMATED BASOPHIL 0.5 % (0-2); AUTOMATED EOSINOPHIL 0.1 % (0-5); AUTOMATED LYMPH 14.7 % (17-44); AUTOMATED MONOCYTE 6.2 % (3-10); AUTOMATED NEUTROPHIL 78.5 % (45-76)
[2016-09-22 14:11] LABS: CALC CORRECTED 9.8 MG/DL (8.4-10.2); CALCIUM 8.3 MG/DL (8.4-10.2); TOTAL PROTEIN 6.6 G/DL (6.3-8.2)
[2016-09-22] MEDS ORDERED: ONDANSETRON HCL 4 MG ODT TAB PO ONE (14:53)
[2016-09-22 15:28] VITALS: BP 216/111; PULSE 92
[2016-09-22] MEDS ORDERED: QUETIAPINE FUMARATE 100 MG TAB PO ONE (15:28)
[2016-09-22] MEDS ORDERED: NITROGLYCERINE 2 % OINTMENT PACK TOP SCH (18:00)
== END 2016-09-22 15:35 ==
LOC: ED 10:51
DX: K92.0 Hematemesis (principal); R11.0 Nausea
CPT/HCPCS: 36415; 74022; 80053; 85025; 99284; J3490

== ENCOUNTER 2016-09-23 16:41 | Emergency (ER) | payer MEDICAID ==
[2016-09-23 16:42] VITALS: BMI 26.9
[2016-09-23] MEDS ORDERED: SODIUM CHLORIDE 0.9% 10 ML FLUSH FLUSH PRN (18:49)
--- NOTE | 2016-09-23 19:15 | DIRPT ---
CLINICAL DATA: Chest pain EXAM: PORTABLE CHEST 1 VIEW COMPARISON: 09/12/2016 FINDINGS: Heart size is normal. Lung volumes are low. No pleural effusion or edema. There is no airspace consolidation identified. IMPRESSION: 1. No acute cardiopulmonary abnormalities. 2. Low lung volumes. Electronically Signed By: Lynda Cunningham M.D. On: 09/23/2016 19:13
[2016-09-23 19:21] LABS: AMORPHOUS 1+; LEUKOCYTES/URINE TRACE (NEGATIVE); NITRITE/URINE NEG (NEGATIVE); RBC/URINE 40-50 (0-2); URINE OCCULT BLOOD NEG (NEG/TRACE)
[2016-09-23] MEDS ORDERED: HYDROmorphone 1 MG INJECTION IV ONE ×2 (19:57→23:55)
[2016-09-23 20:16] LABS: MPV 7.2 fL (7.4-10.4)
[2016-09-23] MEDS ORDERED: PANTOPRAZOLE 40 MG VIAL IV ONE ×2 (20:23→20:39)
[2016-09-23] MEDS ORDERED: LABETALOL 20 MG/4 ML SYRINGE IV ONE (20:23)
[2016-09-23] MEDS ORDERED: ONDANSETRON HCL 4 MG/2 ML VIAL IV ONE (20:23)
[2016-09-23 20:30] LABS: PARTIAL THROMB. TIME 26.4 SEC (22-35); PT-INR 1.1
[2016-09-23 20:31] LABS: BLOOD UREA NITROGEN 22 MG/DL (9-20); CALC CORRECTED 9.7 MG/DL (8.4-10.2); CALCIUM 7.7 MG/DL (8.4-10.2); CALCULATED OSMOLALITY 276 MOs/Kg (270-290); CHLORIDE 115 mEq/L (98-107); GLUCOSE 137 MG/DL (70-99); SODIUM LEVEL 141 mEq/L (137-146); TOTAL PROTEIN 5.4 G/DL (6.3-8.2)
[2016-09-23] MEDS ORDERED: PANTOPRAZOLE 40 MG TAB PO ONE (20:39)
[2016-09-23 20:47] LABS: SEG NEUTROPHIL 73 % (45-76)
--- NOTE | 2016-09-23 20:49 | EDPRACDOC ---
- General Information Chief Complaint: Altered Mental Status Stated Complaint: LOC Time Seen by Provider: 09/23/16 18:21 Information Source: [employer] Home Medications: Home Medications Fluoxetine HCl [Prozac] 40 mg PO 0900 06/29/15 HydrALAZINE (Cardiovascular) [Apresoline] 50 mg PO QID 06/29/15 Amlodipine Besylate 10 mg PO 0900 09/12/15 Sucralfate [Carafate] 1 gm PO QID 02/12/16 Docusate Sodium 100 mg PO BID 04/25/16 Quetiapine Fumarate [Seroquel] 200 mg PO QHS 06/02/16 Ferrous Sulfate [Feosol] 325 mg PO BID 06/13/16 Guaifenesin [Robitussin] 15 ml PO Q6H PRN 06/13/16 Omeprazole [Prilosec] 20 mg PO BID 06/13/16 Sennosides [Senna] 2 tab PO HS 06/13/16 CloNIDine (Antihypertensive) [Catapres] 0.2 mg PO BID 07/30/16 Acetaminophen [Tylenol] 650 mg PO Q6H PRN 09/12/16 Bethanechol Chloride [Urecholine] 25 mg PO 0900 09/12/16 Mag Hydrox/Al Hydrox/Simeth [Maalox Suspension] 30 ml PO Q3H PRN 09/12/16 Magnesium Oxide [Magnesium] 400 mg PO 0900 09/12/16 Ondansetron HCl [Zofran] 4 mg PO Q8H PRN 09/12/16 Polyethylene Glycol 3350 [Miralax] 17 gm PO BID 09/12/16 Potassium Chloride 10 meq PO 0900 09/12/16 Tamsulosin HCl [Flomax] 0.4 mg PO 0900 09/12/16 Temazepam [Restoril] 15 mg PO QHS PRN 09/12/16 Levetiracetam [Keppra] 500 mg PO TID #90 tablet 09/19/16 Metoprolol Tartrate [Lopressor] 100 mg PO BID #60 tablet 09/19/16 Oxycodone HCl [Roxicodone] 5 mg PO Q6H PRN #30 tablet 09/19/16 Aspirin [Aspirin EC] 325 mg PO 0900 09/22/16 Insulin Detemir [Levemir Flextouch] 8 unit SQ 0900 17 Multivitamin [One Daily Essential] 1 tab PO 0900 09/22/16 Pravastatin [Pravachol] 40 mg PO 2100 09/22/16 Valproic Acid [Depakene] 500 mg PO TID 09/22/16 Ampicillin 500 mg PO Q6 #10 days 09/24/16 Hydrocodone Bit/Acetaminophen [Pierce 5-325 Tablet] 1 each PO Q4H #20 tab Allergies/Adverse Reactions: Allergies Allergy/AdvReac Type Severity Reaction Status Date / Time Latex, Natural Rubber Allergy Intermediate Rash-Locali Verified 09/22/16 14:12 zed atorvastatin calcium Allergy See Verified 09/22/16 14:12 [From Lipitor] Comments - History of Present Illness Onset: TODAY Exact Onset of Symptoms: Unknown HPI: PT PRESENTS TODAY WITH AMS PER NURSING STAFF AT HOME. PT WAS SEEN HERE YESTERDAY FOR POSSIBLE UGI BLEED. PT HAS KNOWN MEILLARY RASMUSSEN TEARS AND LAST EGD WAS 07/2016. STAFF BELIEVES HE MAY HAVE UTI. PTS ONLY COMPLAINT IS LOWER ABD PAIN AND NAUSEA. ROS/HPI LIMITED D/T PTS MENTAL STATUS. NO APPARENT DISTRESS. INITIALLY DIFFICULT TO WAKE PT UPON ARRIVAL BY EMS, BUT WHEN I WENT TO DRAW BLOOD PT WAS ALERT AND SITTING UP IN BED. 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 EGD 01/2016 Dr. Vicente, no ulcers.), Ulcer (in past. No ulcer on EGD 01/2016, Dr. Vicente) Musculoskeletal History: Reports: Arthritis Psychological History: Reports: Schizophrenia. Denies: Depression, Substance Use Disorder Systemic History: Reports: Diabetes (Type 2) - Family Medical History Reports: Hypertension (father,Sister), Diabetes (father), Cancer (mother (colon) ), Stroke (father). Denies: Cardiac Disorders - Social Medical History Smoking Status: Never smoker Social History: Denies: Substance Use Disorder EDM Review of Systems - Review of Systems ROS Negative Except as Marked: Yes All systems reviewed and were negative except as marked ROS Unobtainable: Yes Hx Limited due to age/level of understanding of patient Constitutional: No Symptoms Reported Respiratory: No Symptoms Reported Cardiovascular: No Symptoms Reported Gastrointestinal: Nausea, Pain Neurological: Changes in Orientation Musculoskeletal: No Symptoms Reported Integumentary: No Symptoms Reported - Physical Exam Constitutional: Alert (Awake), No apparent distress Oriented to: Time, Person, Place Last recorded Vital Signs: Last Vital Signs Temp Pulse 85 09/23/16 20:03 Resp 18 09/23/16 20:03 BP 223/108 H 09/23/16 20:03 Pulse Ox 99 09/23/16 20:03 Oxygen Pulse Oxygen Saturation 99 O2 Device Room Air Oxygen Flow Rate Fraction of Inspired Oxygen ( FIO2) - HEENT Head: Normal Eye Exam: Normal Neck: Normal, Denies Pain, Midline - Respiratory/Cardiovascular Respiratory: Normal - CTA Cardiovascular: Normal - GI Auscultation: Normal Palpation: Normal Tenderness: Mild, RLQ, LLQ - Musculoskeletal Back: Normal Extremities: Normal - Integumentary Skin: Normal Lymphatics: Normal - Neurologic Cerebellar: Unable to Test Mood Description: Appropriate - Re-evaluation Re-evaluation 1 Re-evaluation Time: 00:[address] JOYCE. NO NEW CHANGES IN LABS OR IMAGING. PT HAS KNOWN MEALLARY RASMUSSEN TEARS, BUT NEGATIVE HEME STOOL AT THIS TIME. PT STATES PAIN HAS RESOLVED WITH MEDICATION HERE. NOTED BACTEREMIA WITH RECENT CULTURE RESPONSIVE TO AMPICILLIN. WILL SEND HOME WITH PRESCRIPTION AND TO FOLLOW UP WITH PCP. - Results 09/23/16 19:55 09/23/16 19:55 WBC 20.4 xk/uL (3.8-10.8) H 09/23/16 19:55 RBC 3.29 xM/uL (4.70-6.10) L 09/23/16 19:55 Hgb 9.0 g/dL (14.0-18.0) L D 09/23/16 19:55 Hct 26.3 % (42-52) L 09/23/16 19:55 MCV 80 fL (80-94) 09/23/16 19:55 MCH 27.3 pg (27-32) 09/23/16 19:55 MCHC 34.2 g/dl (33-36) 09/23/16 19:55 RDW 15.9 % (11.5-14.5) H 09/23/16 19:55 Plt Count 424 xk/uL (130-400) H 09/23/16 19:55 MPV 7.2 fL (7.4-10.4) L 09/23/16 19:55 PT 11.6 SEC (9.2-11.2) H 09/23/16 19:55 INR 1.1 09/23/16 19:55 APTT 26.4 SEC (22-35) 09/23/16 19:55 Sodium 141 mEq/L (137-146) 09/23/16 19:55 Potassium 3.8 mEq/L (3.5-5.1) 09/23/16 19:55 Chloride 115 mEq/L (98-107) H 09/23/16 19:55 Carbon Dioxide 19 mMOL/L (22-33) L 09/23/16 19:55 Anion Gap 11 mEq/L (8-16) 09/23/16 19:55 BUN 22 MG/DL (9-20) H 09/23/16 19:55 Creatinine 2.30 MG/DL (0.66-1.25) H 09/23/16 19:55 Estimated GFR (MDRD) 38 mL/min (>=60) L 09/23/16 19:55 Glucose 137 MG/DL (70-99) H 09/23/16 19:55 Calculated Osmolality 276 MOs/Kg (270-290) 09/23/16 19:55 Lactic Acid < 0.5 mEq/L (0.7-2.1) L 09/23/16 19:55 Calcium 7.7 MG/DL (8.4-10.2) L 09/23/16 19:55 Corrected Calcium 9.7 MG/DL (8.4-10.2) 09/23/16 19:55 Total Bilirubin 0.1 MG/DL (0.2-1.3) L 09/23/16 19:55 AST 24 IU/L (17-59) 09/23/16 19:55 ALT 26 IU/L (21-72) 09/23/16 19:55 Alkaline Phosphatase 134 IU/L (38-126) H 09/23/16 19:55 Troponin I 0.01 ng/mL (<.04) 09/23/16 19:55 Total Protein 5.4 G/DL (6.3-8.2) L 09/23/16 19:55 Albumin 2.0 G/DL (3.5-5.0) L 09/23/16 19:55 Urine Color Pale yellow 09/23/16 19:04 Urine Clarity Sl cldy 09/23/16 19:04 Urine pH 5.0 (5.0-8.0) 09/23/16 19:04 Ur Specific [place] >/=1.035 (1.003-1.035) 09/23/16 19:04 Urine Protein Neg (NEG/TRACE) 09/23/16 19:04 Urine Glucose (UA) 1+ (NEGATIVE) 09/23/16 19:04 Urine Ketones 2+ (NEGATIVE) H 09/23/16 19:04 Urine Occult Blood Neg (NEG/TRACE) 09/23/16 19:04 Urine Nitrite Neg (NEGATIVE) 09/23/16 19:04 Urine Bilirubin Neg (NEGATIVE) 09/23/16 19:04 Urine Urobilinogen <2.0 MG/DL (0-1) 09/23/16 19:04 Ur Leukocyte Esterase Trace (NEGATIVE) H 09/23/16 19:04 Urine RBC 40-50 (0-2) H 09/23/16 19:04 Urine WBC 10-20 (0-2) H 09/23/16 19:04 Ur Epithelial Cells 2+ 09/23/16 19:04 Amorphous Sediment 1+ 09/23/16 19:04 Urine Bacteria 1+ (NEG/FEW) H 09/23/16 19:04 Granular Casts 2-5 (NONE) H 09/23/16 19:04 Urine Mucus Mod (NEG/OCC) H 09/23/16 19:04 Lab Results 09/23/16 09/23/16 09/23/16 19:55 19:55 19:55 WBC 20.4 H RBC 3.29 L Hgb 9.0 L D Hct 26.3 L MCV 80 MCH 27.3 MCHC 34.2 RDW 15.9 H Plt Count 424 H MPV 7.2 L PT 11.6 H INR 1.1 APTT 26.4 Sodium Potassium Chloride Carbon Dioxide Anion Gap BUN Creatinine Estimated GFR (MDRD) Glucose Calculated Osmolality Lactic Acid < 0.5 L Calcium Corrected Calcium Total Bilirubin AST ALT Alkaline Phosphatase Troponin I Total Protein Albumin Urine Color Urine Clarity Urine pH Ur Specific [place] Urine Protein Urine Glucose (UA) Urine Ketones Urine Occult Blood Urine Nitrite Urine Bilirubin Urine Urobilinogen Ur Leukocyte Esterase Urine RBC Urine WBC Ur Epithelial Cells Amorphous Sediment Urine Bacteria Granular Casts Urine Mucus 09/23/16 09/23/16 19:55 19:04 WBC RBC Hgb Hct MCV MCH MCHC RDW Plt Count MPV PT INR APTT Sodium 141 Potassium 3.8 Chloride 115 H Carbon Dioxide 19 L Anion Gap 11 BUN 22 H Creatinine 2.30 H Estimated GFR (MDRD) 38 L Glucose 137 H Calculated Osmolality 276 Lactic Acid Calcium 7.7 L Corrected Calcium 9.7 Total Bilirubin 0.1 L AST 24 ALT 26 Alkaline Phosphatase 134 H Troponin I 0.01 Total Protein 5.4 L Albumin 2.0 L Urine Color Pale yellow Urine Clarity Sl cldy Urine pH 5.0 Ur Specific [place] >/=1.035 Urine Protein Neg Urine Glucose (UA) 1+ Urine Ketones 2+ H Urine Occult Blood Neg Urine Nitrite Neg Urine Bilirubin Neg Urine Urobilinogen <2.0 Ur Leukocyte Esterase Trace H Urine RBC 40-50 H Urine WBC 10-20 H Ur Epithelial Cells 2+ Amorphous Sediment 1+ Urine Bacteria 1+ H Granular Casts 2-5 H Urine Mucus Mod H - EKG EKG #1 EKG Time: 19:37 -: Yes EKG interpreted by me Rate: bpm: 84 [place]: Normal Rhythm: NSR Block: None Hypertrophy: None ST: Normal Decision Time to Discharge: 00:15 - Departure Disposition: Home Condition: Stable Final Diagnosis: UTI (urinary tract infection) Qualifiers: Urinary tract infection type: site unspecified Hematuria presence: with hematuria Qualified Code(s): N39.0 - Urinary tract infection, site not specified ; R31.9 - Hematuria, unspecified Instructions: Urinary Tract Infection in Men (ED), Dysuria Education/Counseling Given To: Patient Education/Counseling Given Regarding: Diagnosis, Treatment, Follow Up Referrals: Fredy Vinson MD [Primary Care Provider] - One Week Prescriptions: New Ampicillin 500 mg PO Q6 #10 days Hydrocodone Bit/Acetaminophen [Pierce 5-325 Tablet] 1 each PO Q4H #20 tab No Action Fluoxetine HCl [Prozac] 40 mg PO 0900 HydrALAZINE (Cardiovascular) [Apresoline] 50 mg PO QID Amlodipine Besylate 10 mg PO 0900 Sucralfate [Carafate] 1 gm PO QID Docusate Sodium 100 mg PO BID Quetiapine Fumarate [Seroquel] 200 mg PO QHS Sennosides [Senna] 2 tab PO HS Omeprazole [Prilosec] 20 mg PO BID Ferrous Sulfate [Feosol] 325 mg PO BID Guaifenesin [Robitussin] 15 ml PO Q6H PRN PRN Reason: Cough CloNIDine (Antihypertensive) [Catapres] 0.2 mg PO BID Acetaminophen [Tylenol] 650 mg PO Q6H PRN PRN Reason: Pain Temazepam [Restoril] 15 mg PO QHS PRN PRN Reason: Sleep Or Insomnia Tamsulosin HCl [Flomax] 0.4 mg PO 0900 Magnesium Oxide [Magnesium] 400 mg PO 0900 Mag Hydrox/Al Hydrox/Simeth [Maalox Suspension] 30 ml PO Q3H PRN PRN Reason: INDIGESTION Potassium Chloride 10 meq PO 0900 Polyethylene Glycol 3350 [Miralax] 17 gm PO BID Bethanechol Chloride [Urecholine] 25 mg PO 0900 Ondansetron HCl [Zofran] 4 mg PO Q8H PRN PRN Reason: Nausea/Vomiting Levetiracetam [Keppra] 500 mg PO TID #90 tablet Metoprolol Tartrate [Lopressor] 100 mg PO BID #60 tablet Oxycodone HCl [Roxicodone] 5 mg PO Q6H PRN #30 tablet PRN Reason: Pain Valproic Acid [Depakene] 500 mg PO TID Pravastatin [Pravachol] 40 mg PO 2100 Multivitamin [One Daily Essential] 1 tab PO 0900 Insulin Detemir [Levemir Flextouch] 8 unit SQ 0900 Aspirin [Aspirin EC] 325 mg PO 0900 Additional Instructions: REST AND PLENTY OF FLUIDS. CONTINUE OTHER MEDICATIONS PRESCRIBED AND FOLLOW UP WITH PCP IN 2-3 DAYS.
[2016-09-23 20:52] LABS: TOTAL CELL COUNT 100
[2016-09-23 21:57] VITALS: PULSE 87
[2016-09-23] MEDS ORDERED: AMOXICILLIN 500 MG CAP ONE (23:50)
--- NOTE | 2016-09-24 00:07 | DIRPT ---
CLINICAL DATA: Altered mental status, recent stroke. History of seizures. EXAM: CT HEAD WITHOUT CONTRAST TECHNIQUE: Contiguous axial images were obtained from the base of the skull through the vertex without intravenous contrast. COMPARISON: MRI of the head September 13, 2016 FINDINGS: Moderate ventriculomegaly on the basis of global parenchymal brain volume loss. No intraparenchymal hemorrhage, mass effect nor midline shift. No acute large vascular territory infarcts. Patchy supratentorial and pontine white matter T2 hyperintensity advanced for patient's age. Old RIGHT basal ganglia lacunar infarct. No abnormal extra-axial fluid collections. Basal cisterns are patent. Mild calcific atherosclerosis the carotid bulbs. No skull fracture. RIGHT periorbital soft tissue swelling partially imaged. Old RIGHT orbital floor blow-out fracture. Old RIGHT medial orbital blowout fracture. Status post bilateral ocular lens implants. The mastoid aircells and included paranasal sinuses are well-aerated. IMPRESSION: No acute intracranial process. Stable appearance of the brain from September 13, 2016 including moderate global brain atrophy, mild to moderate chronic small vessel ischemic disease and old RIGHT basal ganglia infarct. Electronically Signed By: Mariana Quezada M.D. On: 09/24/2016 00:04
[2016-09-24 00:58] VITALS: BP 197/113
[2016-09-24] MEDS ORDERED: AMPICILLIN 250 MG CAP PO ONE (22:46)
== END 2016-09-24 00:56 ==
LOC: ED 16:41
DX: N39.0 Urinary tract infection, site not specified (principal); R31.9 Hematuria, unspecified
CPT/HCPCS: 36415; 70450; 71010; 80053; 81001; 82270; 83605; 84484; 85007; 85027; 85610; 85730; 87040; 87077; 87086; 87186; 93005; 96374; 96375; 96376; 99285; J1170; J2405; J3490; S0164